=== PATIENT | male | born 1955 | race Caucasian/White ===

== ENCOUNTER 2016-07-12 07:28 | Inpatient (IN) | payer BC ==
[2016-07-12] VITALS (17 sets, daily range): BP systolic 87–138; BP diastolic 45–77
[~2016-07-12] VITALS: Ht 177.8 cm; Wt 98.6 kg
[2016-07-12 07:54] LABS: BASO # 0.1 x10^3/uL (0.0-0.2); BASO % 0 % (0-3); EOS % 1 % (0-3); HEMATOCRIT 48.7 % (39.0-53.0); HEMOGLOBIN 17.1 g/dL (13.0-17.5); LYMPH # 1.6 x10^3/uL (1.0-4.8); LYMPH % 13 % (24-48); MEAN CORPUSCULAR HEMOGLOBIN 33 pg (25-35); MEAN CORPUSCULAR HGB CONC 35 g/dL (31-37); MEAN CORPUSCULAR VOLUME 93 fL (79-100); MONO % 8 % (0-9); NEUT % 78 % (31-73); PLATELET COUNT 238 x10^3/uL (140-400); RED BLOOD COUNT 5.24 x10^6/uL (4.30-5.70); RED CELL DISTRIBUTION WIDTH 13.4 % (11.5-14.5); WHITE BLOOD COUNT 11.7 x10^3/uL (4.0-11.0)
--- NOTE | 2016-07-12 07:58 | PHYS DOC ---
Past Medical History Past Medical History: COPD, Hypertension Past Surgical History: Other Additional Past Surgical Histo: umiblical hernia, AAA Adult General Chief Complaint Chief Complaint: CHEST PAIN HPI HPI Patient is a 61 year old male presents to the emergency department by private vehicle. Patient states he was fine when he went to work. 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 He states he began to have numbness and tingling in the left arm and hand. He states, "I was able to think of what I wanted to say although I could not speak it." Patient states he was able to call for others to come get his truck. Patient was activated as a code stroke. Patient states he had hernia surgery 1 year ago, he currently take ASA daily. Review of Systems Review of Systems Constitutional: Denies fever or chills [] Eyes: Denies change in visual acuity, redness, or eye pain [] HENT: Denies nasal congestion or sore throat [] Respiratory: Denies cough or shortness of breath [] Cardiovascular: No additional information not addressed in HPI [] GI: Denies abdominal pain, nausea, vomiting, bloody stools or diarrhea [] : Denies dysuria or hematuria [] Musculoskeletal: Denies back pain or joint pain [] Integument: Denies rash or skin lesions [] Neurologic: Denies headache, focal weakness or sensory changes [] Endocrine: Denies polyuria or polydipsia [] Current Medications Current Medications Current Medications Medications (Trade) Dose Ordered Sig/Remy Start Time Stop Time Status Last Admin Dose Admin Alteplase, Recombinant 0 ml @ 81 mls/hr Q1H 07/12/16 08:45 07/12/16 08:46 DC 07/12/16 09:09 81 MLS/HR Sodium Chloride 50 ml @ 0 mls/hr 1X ONCE 07/12/16 08:30 07/12/16 08:39 DC 07/12/16 10:03 0 MLS/HR Allergies Allergies Allergies Coded Allergies Type Severity Reaction Last Updated Verified levofloxacin Allergy Intermediate "stroke like symptoms" 07/12/16 Yes Uncoded Allergies Type Severity Reaction Last Updated Verified thermosol Adverse Reaction Intermediate 07/12/16 Physical Exam Physical Exam Constitutional: Well developed, well nourished, no acute distress, non-toxic appearance. [] HENT: Normocephalic, atraumatic, bilateral external ears normal, oropharynx moist, no oral exudates, nose normal. [] Eyes: PERRLA, EOMI, conjunctiva normal, no discharge. [] Neck: Normal range of motion, no tenderness, supple, no stridor. [] Cardiovascular:Heart rate regular rhythm, no murmur [] Lungs & Thorax: Bilateral breath sounds clear to auscultation [] Abdomen: Bowel sounds normal, soft, no tenderness, no masses, no pulsatile masses. [] Skin: Warm, dry, no erythema, no rash. [] Back: No tenderness Extremities: No tenderness, no cyanosis, no clubbing, ROM intact, no edema. [] Neurologic: Alert and oriented X 3, normal motor function, normal sensory function, no focal deficits noted. cranial nerve II-XII intact with patient having decrease sensation to left lower extremity. Psychologic: Affect normal, judgement normal, mood normal. [] Current Patient Data Vital Signs Vital Signs Date Time Temp Pulse Resp B/P (MAP) Pulse Ox O2 Delivery O2 Flow Rate FiO2 07/12/16 08:32 76 18 134/76 (95) 92 Room Air 07/12/16 07:54 97.7 97.7 Lab Values Laboratory Tests Test 07/12/16 07:43 07/12/16 07:47 07/12/16 08:40 Glucose (Fingerstick) 116 mg/dL (70-99) H White Blood Count 11.7 x10^3/uL (4.0-11.0) H Red Blood Count 5.24 x10^6/uL (4.30-5.70) Hemoglobin 17.1 g/dL (13.0-17.5) Hematocrit 48.7 % (39.0-53.0) Mean Corpuscular Volume 93 fL (79-100) Mean Corpuscular Hemoglobin 33 pg (25-35) Mean Corpuscular Hemoglobin Concent 35 g/dL (31-37) Red Cell Distribution Width 13.4 % (11.5-14.5) Platelet Count 238 x10^3/uL (140-400) Neutrophils (%) (Auto) 78 % (31-73) H Lymphocytes (%) (Auto) 13 % (24-48) L Monocytes (%) (Auto) 8 % (0-9) Eosinophils (%) (Auto) 1 % (0-3) Basophils (%) (Auto) 0 % (0-3) Neutrophils # (Auto) 9.2 x10^3uL (1.8-7.7) H Lymphocytes # (Auto) 1.6 x10^3/uL (1.0-4.8) Monocytes # (Auto) 0.9 x10^3/uL (0.0-1.1) Eosinophils # (Auto) 0.1 x10^3/uL (0.0-0.7) Basophils # (Auto) 0.1 x10^3/uL (0.0-0.2) Prothrombin Time 12.7 SEC (11.7-14.0) Prothrombin Time INR 1.0 (0.8-1.1) PTT 32 SEC (24-38) Sodium Level 139 mmol/L (136-145) Potassium Level 3.7 mmol/L (3.5-5.1) Chloride Level 101 mmol/L (98-107) Carbon Dioxide Level 27 mmol/L (21-32) Anion Gap 11 (6-14) Blood Urea Nitrogen 14 mg/dL (8-26) Creatinine 1.1 mg/dL (0.7-1.3) Estimated GFR (Cockcroft-Gault) 68.3 BUN/Creatinine Ratio 13 (6-20) Glucose Level 109 mg/dL (70-99) H Calcium Level 9.5 mg/dL (8.5-10.1) Total Bilirubin 0.8 mg/dL (0.2-1.0) Aspartate Amino Transferase (AST) 24 U/L (15-37) Alanine Aminotransferase (ALT) 16 U/L (16-63) Alkaline Phosphatase 81 U/L (46-116) Troponin I Quantitative < 0.017 ng/mL (0.000-0.055) Total Protein 7.9 g/dL (6.4-8.2) Albumin 3.8 g/dL (3.4-5.0) Albumin/Globulin Ratio 0.9 (1.0-1.7) L Triglycerides Level 51 mg/dL (0-150) Cholesterol Level 152 mg/dL (0-200) LDL Cholesterol, Calculated 97 mg/dL (0-100) VLDL Cholesterol, Calculated 10 mg/dL (0-40) Non-HDL Cholesterol Calculated 107 mg/dL (0-129) HDL Cholesterol 45 mg/dL (40-60) Cholesterol/HDL Ratio 3.4 Thyroid Stimulating Hormone (TSH) 0.644 uIU/mL (0.358-3.74) Urine Collection Type Unknown Urine Color Yellow Urine Clarity Clear Urine pH 7.0 Urine Specific [place] 1.015 Urine Protein Negative mg/dL (NEG-TRACE) Urine Glucose (UA) Negative mg/dL (NEG) Urine Ketones (Stick) Negative mg/dL (NEG) Urine Blood Negative (NEG) Urine Nitrite Negative (NEG) Urine Bilirubin Negative (NEG) Urine Urobilinogen Dipstick 1.0 mg/dL (0.2 mg/dL) Urine Leukocyte Esterase Negative (NEG) Urine RBC 0 /HPF (0-2) Urine WBC Occ /HPF (0-4) Urine Squamous Epithelial Cells Few /LPF Urine Bacteria 0 /HPF (0-FEW) Laboratory Tests 07/12/16 07:47 Laboratory Tests 07/12/16 07:47 EKG EKG Patient with an EKG completed those 740 heart rate 72 sinus rhythm noted no STEMI per Dr. Bucio. [] Radiology/Procedures Radiology/Procedures [facility] [address] [place], [place] [id number] IMAGING REPORT Signed PATIENT: TAN TORRES ACCOUNT: [id number] : 1955 LOCATION: ER AGE: 61 SEX: M EXAM STATUS: PRE ER ORD. PHYSICIAN: VENTURA SHUKLA APRN REASON: neuro changes less than 1 hour ago PROCEDURE: CT HEAD WO CONTRAST CT of the head without contrast, 07/12/2016: History: Left arm weakness, hypertension The ventricles are within normal limits in size. There is no shift of the midline structures. There is no evidence of acute intracranial hemorrhage or mass effect. Moderate mucosal thickening is noted in the maxillary and ethmoid sinuses. There is mucosal thickening with an air-fluid level in the left frontal sinus. IMPRESSION: 1. No acute intracranial abnormality is detected. 2. Paranasal sinusitis PQRS Compliance Statement: One or more of the following individualized dose reduction techniques were utilized for this examination: 1. Automated exposure control 2. Adjustment of the mA and/or kV according to patient size 3. Use of iterative reconstruction technique DICTATED and SIGNED BY: EVA TREVINO MD DATE: 07/12/16753 CC: VENTURA SHUKLA APRN ~ [] [facility] [address] [place] [address] IMAGING REPORT Signed PATIENT: TAN TORRES ACCOUNT: [id number] : 1955 LOCATION: ER AGE: 61 SEX: M EXAM STATUS: REG ER ORD. PHYSICIAN: VENTURA SHUKLA APRN REASON: SOA, all over weakness & tingling since 0600 this morning PROCEDURE: PORTABLE CHEST 1V Indication shortness of air. Weakness. A single view of the chest was obtained. No prior imaging of the chest is available. The heart and pulmonary vessels are within normal limits. There is volume loss at the lung bases most compatible with atelectasis. Underlying pneumonia is not entirely excluded. Significant pleural fluid is not seen. There is no pneumothorax. IMPRESSION: Volume loss at the lung bases likely reflects atelectasis. A definite acute process in the chest is not seen. DICTATED and SIGNED BY: DANIELITO KITCHEN MD DATE: 07/12/16920 CC: VENTURA SHUKLA APRN; NON,STAFF ~ Course & Med Decision Making Course & Med Decision Making Pertinent Labs and Imaging studies reviewed. (See chart for details) Assessment completed with patient noted to have drift of left upper arm and left leg. Patient with decrease strength per upper extremities, Patient noted to be slower with upper left arm movements when performing finger to nose to finger exam. Patient with decrease sensation noted to the left extremities. 0754 CT scan negative for acute findings at this times. Call placed to Dr Person with NIH scale 4, PT/PTT/INR normal, creatine normal. Spoke with Dr Moody in regards to admission for this patient. Patient will be placed in ICU Spoke with patient and in regards to TPA. Patient is considered to be a TPA candidate. Provided patient and with risk and benefit of using TPA with patient stating, "Let my make all the decisions, I cannot think straight." Patients agrees with TPA treatment. Patient will be admitted into ICU patient is guarded at this time. Co-worker stated she received a phone call from him that he was not feeling right. She states he was very calm when he was talking to her. She states at 0717 when she had talked to him again he had slurred speech. Dr Bucio aware of the patients condition and aware of treatment plan. Dr Bucio to assess patient. [address] Person in regards to patient having slurred speech, left facial drooping, with improvement of left leg. Dr Person feels that the stroke protocol has been followed and there may be further progression of strokes in next 24 hours. Asked about repeat CT of head with Dr Person recommending following stroke protocol. [] Dragon Disclaimer Dragon Disclaimer This electronic medical record was generated, in whole or in part, using a voice recognition dictation system. Departure Departure Impression: Primary Impression: CVA (cerebral vascular accident) Disposition: ADMITTED INPATIENT Admitting Physician: Other (Spoke with Dr Moody and Dr Person) Condition: GUARDED VENTURA SHUKLA LIFE CLAIMS EXAMINER July 12, 2016 07:58
[2016-07-12 07:59] LABS: CALCIUM 9.5 mg/dL (8.5-10.1); CREATININE 1.1 mg/dL (0.7-1.3); GFR 68.3; POTASSIUM 3.7 mmol/L (3.5-5.1)
[2016-07-12 08:08] LABS: ALBUMIN 3.8 g/dL (3.4-5.0); ALBUMIN/GLOBULIN RATIO 0.9 (1.0-1.7); TOTAL BILIRUBIN 0.8 mg/dL (0.2-1.0); TOTAL PROTEIN 7.9 g/dL (6.4-8.2)
[2016-07-12 08:16] LABS: PROTHROMBIN TIME PATIENT 12.7 SEC (11.7-14.0)
[2016-07-12] MEDS ORDERED: IV NORMAL SALINE 50ML 50 ML IV ONE (08:30)
[2016-07-12] MEDS ORDERED: BECL8.7A6 IH (08:43)
[2016-07-12] MEDS ORDERED: LANS30CA PO (08:43)
[2016-07-12] MEDS ORDERED: TIOT18CA IH (08:43)
[2016-07-12] MEDS ORDERED: BRIM5DRO3 RIGHTEYE (08:43)
[2016-07-12] MEDS ORDERED: LISI1TAB5 PO (08:43)
[2016-07-12] MEDS ORDERED: DORZ10DR3 RIGHTEYE (08:43)
[2016-07-12] MEDS ORDERED: PROAIR HFA8.5 GM INH (08:43)
[2016-07-12] MEDS ORDERED: ATOR20TA58 PO (08:43)
[2016-07-12] MEDS ORDERED: ALTEPLASE 81 MG IV SCH (08:45)
[2016-07-12] MEDS ORDERED: ALTEPLASE 9 MG IV ONE (08:45)
--- NOTE | 2016-07-12 08:45 | EKG ---
[facility] [address] [place] [address] Test Date: 2016-07-12 Test Time: 07:40:49 Pat Name: TAN [facility] Department: Room: Gender: M Scheduling Analyst: : 1955 Requested By: VENTURA SHUKLA Order Number: [id number] Reading MD: Kathy Montes Measurements Intervals [place] Rate: 72 P: 1 NV: 160 QRS: -37 QRSD: 120 T: 14 QT: 396 QTc: 435 Interpretive Statements SINUS RHYTHM ABNORMAL LEFT AXIS DEVIATION LEFT ANTERIOR FASCICULAR BLOCK INCOMPLETE RIGHT BUNDLE BRANCH BLOCK RI6.01 Unconfirmed report No previous ECG available for comparison Electronically Signed On 07-15-2016 20:36:20 CDT by Kathy Montes
[2016-07-12 08:50] LABS: BILIRUBIN,URINE NEGATIVE (NEG); GLUCOSE,URINE NEGATIVE (NEG); NITRITE,URINE NEGATIVE (NEG); PROTEIN,URINE NEGATIVE (NEG-TRACE)
[2016-07-12 09:01] LABS: RBC,URINE 0 /HPF (0-2)
[2016-07-12 09:02] LABS: BACTERIA,URINE 0 /HPF (0-FEW); SQUAMOUS EPITHELIAL CELL,UR FEW /LPF; WBC,URINE OCC /HPF (0-4)
[2016-07-12] MEDS ORDERED: ONDANSETRON ODT 4 MG TAB.RAPDIS. PO ONE (09:15)
--- NOTE | 2016-07-12 09:25 | RAD ---
Indication shortness of air. Weakness. A single view of the chest was obtained. No prior imaging of the chest is available. The heart and pulmonary vessels are within normal limits. There is volume loss at the lung bases most compatible with atelectasis. Underlying pneumonia is not entirely excluded. Significant pleural fluid is not seen. There is no pneumothorax. IMPRESSION: Volume loss at the lung bases likely reflects atelectasis. A definite acute process in the chest is not seen.
--- NOTE | 2016-07-12 10:10 | ACF ---
Admit Criteria Forms Admit Criteria Forms Admit Criteria Forms STROKE: ISCHEMIC Clinical Indications for Admission to Inpatient Care (Place 'X' for any and all applicable criteria): Admission is indicated for ANY ONE of the following(1)(2)(3)(4): [X]I. Acute stroke Extended stay beyond goal length of stay may be needed for(1)(2) [ ]a) Major deficit or clinical deterioration [ ]b) Hospital-acquired infection (eg, urinary tract infection, pneumonia) [ ]c) Embolic cause of stroke [ ]d) Venous thromboembolism(9) [ ]e) Seizures [ ]f) Bleeding (eg, cerebral) [ ]g) Increased intracranial pressure [ ]h) Comorbidities [ ]i) Surgical intervention The original [employer] content created by [employer] has been revised. The portions of the content which have been revised are identified through the use of italic text or in bold, and [facility] has neither reviewed nor approved the modified material. All other unmodified content is copyright [facility]. Please see references footnoted in the original [employer] edition 2016 ANALISA MCMANUS July 12, 2016 10:10
[2016-07-12] MEDS ORDERED: HYDROcodone/APAP 5/325MG 1 TAB TABLET PO PRN (10:30)
[2016-07-12] MEDS ORDERED: ACETAMINOPHEN 325 MG TABLET. PO PRN (10:30)
[2016-07-12] MEDS ORDERED: hydrALAZINE 20 MG/ML VIAL. IVP PRN (10:30)
[2016-07-12] MEDS ORDERED: ALBUTEROL SULFATE 2.5 MG/3 ML NEBU. NEB PRN (10:30)
[2016-07-12] MEDS ORDERED: ONDANSETRON PF 4 MG/2 ML VIAL. IV PRN (10:30)
--- NOTE | 2016-07-12 10:33 | PDOC1 ---
History and Physical Past Medical History Cardiovascular: HTN Pulmonary: COPD Past Surgical History Past Surgical History AAA repair, glaucoma surgery Family History Family History: Hypertension Social History Smoke: <1 pack per day ALCOHOL: none Drugs: None Current Problem List Problem List Problems Medical Problems: (1) CVA (cerebral vascular accident) Status: Acute Current Medications Current Medications Current Medications Medications (Trade) Dose Ordered Sig/Remy Start Time Stop Time Status Last Admin Dose Admin Alteplase, Recombinant 0 ml @ 81 mls/hr Q1H 07/12/16 08:45 07/12/16 08:46 DC 07/12/16 09:09 81 MLS/HR Ondansetron HCl (Zofran Odt) 4 mg 1X ONCE 07/12/16 09:15 07/12/16 09:16 DC 07/12/16 09:12 4 MG Sodium Chloride 50 ml @ 0 mls/hr 1X ONCE 07/12/16 08:30 07/12/16 08:39 DC 07/12/16 10:03 0 MLS/HR Allergies Allergies Allergies Coded Allergies Type Severity Reaction Last Updated Verified levofloxacin Allergy Intermediate "stroke like symptoms" 07/12/16 Yes Uncoded Allergies Type Severity Reaction Last Updated Verified thermosol Adverse Reaction Intermediate 07/12/16 ROS Review of System CONSTITUTIONAL: No fever or chills EYES: No recent changes SKIN: No rash or itching CARDIOVASCULAR: No chest pain, syncope, palpitations, or edema RESPIRATORY: No SOB or cough GASTROINTESTINAL: No nausea, vomiting or abdominal pain NEUROLOGICAL: slurring of speech, left upper extremity decreased sensations. ENDOCRINE: No cold or heat intolerance GENITOURINARY: No urgency or frequency of urination MUSCULOSKELETAL: No back pain or joint pain LYMPHATICS: No enlarged lymph nodes PSYCHIATRIC: No anxiety or depression Physical Exam Physical Exam GEN.: No apparent distress. Alert and oriented times3 HEENT: Head is normocephalic, atraumatic NECK: Supple. no JVD LUNGS: Clear to auscultation. HEART: RRR, S1, S2 present. Peripheral pulses intact ABDOMEN: Soft, nontender. Positive bowel sounds. EXTREMITIES: Without any cyanosis. NEUROLOGIC: mild slurring of speech, decreased sensation on left upper and LE extremities. PSYCHIATRIC: Normal affect, normal mood. SKIN: No ulcerations Vitals Vitals Vital Signs Date Time Temp Pulse Resp B/P (MAP) Pulse Ox O2 Delivery O2 Flow Rate FiO2 07/12/16 10:02 86 23 121/64 (83) 94 Nasal Cannula 2.0 07/12/16 07:54 97.7 97.7 Labs Labs Laboratory Tests Test 07/12/16 07:43 07/12/16 07:47 07/12/16 08:40 Glucose (Fingerstick) 116 mg/dL (70-99) White Blood Count 11.7 x10^3/uL (4.0-11.0) Red Blood Count 5.24 x10^6/uL (4.30-5.70) Hemoglobin 17.1 g/dL (13.0-17.5) Hematocrit 48.7 % (39.0-53.0) Mean Corpuscular Volume 93 fL (79-100) Mean Corpuscular Hemoglobin 33 pg (25-35) Mean Corpuscular Hemoglobin Concent 35 g/dL (31-37) Red Cell Distribution Width 13.4 % (11.5-14.5) Platelet Count 238 x10^3/uL (140-400) Neutrophils (%) (Auto) 78 % (31-73) Lymphocytes (%) (Auto) 13 % (24-48) Monocytes (%) (Auto) 8 % (0-9) Eosinophils (%) (Auto) 1 % (0-3) Basophils (%) (Auto) 0 % (0-3) Neutrophils # (Auto) 9.2 x10^3uL (1.8-7.7) Lymphocytes # (Auto) 1.6 x10^3/uL (1.0-4.8) Monocytes # (Auto) 0.9 x10^3/uL (0.0-1.1) Eosinophils # (Auto) 0.1 x10^3/uL (0.0-0.7) Basophils # (Auto) 0.1 x10^3/uL (0.0-0.2) Prothrombin Time 12.7 SEC (11.7-14.0) Prothromb Time International Ratio 1.0 (0.8-1.1) Activated Partial Thromboplast Time 32 SEC (24-38) Sodium Level 139 mmol/L (136-145) Potassium Level 3.7 mmol/L (3.5-5.1) Chloride Level 101 mmol/L (98-107) Carbon Dioxide Level 27 mmol/L (21-32) Anion Gap 11 (6-14) Blood Urea Nitrogen 14 mg/dL (8-26) Creatinine 1.1 mg/dL (0.7-1.3) Estimated GFR (Cockcroft-Gault) 68.3 BUN/Creatinine Ratio 13 (6-20) Glucose Level 109 mg/dL (70-99) Calcium Level 9.5 mg/dL (8.5-10.1) Total Bilirubin 0.8 mg/dL (0.2-1.0) Aspartate Amino Transf (AST/SGOT) 24 U/L (15-37) Alanine Aminotransferase (ALT/SGPT) 16 U/L (16-63) Alkaline Phosphatase 81 U/L (46-116) Troponin I Quantitative < 0.017 ng/mL (0.000-0.055) Total Protein 7.9 g/dL (6.4-8.2) Albumin 3.8 g/dL (3.4-5.0) Albumin/Globulin Ratio 0.9 (1.0-1.7) Urine Collection Type Unknown Urine Color Yellow Urine Clarity Clear Urine pH 7.0 Urine Specific [place] 1.015 Urine Protein Negative mg/dL (NEG-TRACE) Urine Glucose (UA) Negative mg/dL (NEG) Urine Ketones (Stick) Negative mg/dL (NEG) Urine Blood Negative (NEG) Urine Nitrite Negative (NEG) Urine Bilirubin Negative (NEG) Urine Urobilinogen Dipstick 1.0 mg/dL (0.2 mg/dL) Urine Leukocyte Esterase Negative (NEG) Urine RBC 0 /HPF (0-2) Urine WBC Occ /HPF (0-4) Urine Squamous Epithelial Cells Few /LPF Urine Bacteria 0 /HPF (0-FEW) Laboratory Tests Test 07/12/16 07:43 07/12/16 07:47 07/12/16 08:40 Glucose (Fingerstick) 116 mg/dL (70-99) White Blood Count 11.7 x10^3/uL (4.0-11.0) Red Blood Count 5.24 x10^6/uL (4.30-5.70) Hemoglobin 17.1 g/dL (13.0-17.5) Hematocrit 48.7 % (39.0-53.0) Mean Corpuscular Volume 93 fL (79-100) Mean Corpuscular Hemoglobin 33 pg (25-35) Mean Corpuscular Hemoglobin Concent 35 g/dL (31-37) Red Cell Distribution Width 13.4 % (11.5-14.5) Platelet Count 238 x10^3/uL (140-400) Neutrophils (%) (Auto) 78 % (31-73) Lymphocytes (%) (Auto) 13 % (24-48) Monocytes (%) (Auto) 8 % (0-9) Eosinophils (%) (Auto) 1 % (0-3) Basophils (%) (Auto) 0 % (0-3) Neutrophils # (Auto) 9.2 x10^3uL (1.8-7.7) Lymphocytes # (Auto) 1.6 x10^3/uL (1.0-4.8) Monocytes # (Auto) 0.9 x10^3/uL (0.0-1.1) Eosinophils # (Auto) 0.1 x10^3/uL (0.0-0.7) Basophils # (Auto) 0.1 x10^3/uL (0.0-0.2) Prothrombin Time 12.7 SEC (11.7-14.0) Prothromb Time International Ratio 1.0 (0.8-1.1) Activated Partial Thromboplast Time 32 SEC (24-38) Sodium Level 139 mmol/L (136-145) Potassium Level 3.7 mmol/L (3.5-5.1) Chloride Level 101 mmol/L (98-107) Carbon Dioxide Level 27 mmol/L (21-32) Anion Gap 11 (6-14) Blood Urea Nitrogen 14 mg/dL (8-26) Creatinine 1.1 mg/dL (0.7-1.3) Estimated GFR (Cockcroft-Gault) 68.3 BUN/Creatinine Ratio 13 (6-20) Glucose Level 109 mg/dL (70-99) Calcium Level 9.5 mg/dL (8.5-10.1) Total Bilirubin 0.8 mg/dL (0.2-1.0) Aspartate Amino Transf (AST/SGOT) 24 U/L (15-37) Alanine Aminotransferase (ALT/SGPT) 16 U/L (16-63) Alkaline Phosphatase 81 U/L (46-116) Troponin I Quantitative < 0.017 ng/mL (0.000-0.055) Total Protein 7.9 g/dL (6.4-8.2) Albumin 3.8 g/dL (3.4-5.0) Albumin/Globulin Ratio 0.9 (1.0-1.7) Urine Collection Type Unknown Urine Color Yellow Urine Clarity Clear Urine pH 7.0 Urine Specific [place] 1.015 Urine Protein Negative mg/dL (NEG-TRACE) Urine Glucose (UA) Negative mg/dL (NEG) Urine Ketones (Stick) Negative mg/dL (NEG) Urine Blood Negative (NEG) Urine Nitrite Negative (NEG) Urine Bilirubin Negative (NEG) Urine Urobilinogen Dipstick 1.0 mg/dL (0.2 mg/dL) Urine Leukocyte Esterase Negative (NEG) Urine RBC 0 /HPF (0-2) Urine WBC Occ /HPF (0-4) Urine Squamous Epithelial Cells Few /LPF Urine Bacteria 0 /HPF (0-FEW) VTE Prophylaxis Ordered VTE Prophylaxis Devices: Contraindicated VTE Pharmacological Prophylaxi: Contraindicated KRISTAL VARELA MD July 12, 2016 10:33
[2016-07-12] MEDS ORDERED: NON FORMULARY ITEM (Albuterol Sulfate (Proair Hfa Inhaler) 1 PUFF) INH PRN (10:45)
[2016-07-12 10:54] LABS: CHOLESTEROL/HDL RATIO 3.4
--- NOTE | 2016-07-12 11:29 | RAD ---
Carotid ultrasound, 07/12/2016: History: CVA Duplex evaluation of the carotid arteries in the neck was performed including grayscale, color-flow and spectral Doppler analysis. There is mild intimal thickening and smooth plaquing in the common carotid arteries and at the carotid bifurcations. The Doppler data obtained from the bifurcations reveals no significant focal velocity elevation to suggest a hemodynamically significant carotid stenosis. The peak systolic velocity in the right internal carotid artery is 63 cm/s with an end-diastolic velocity of 21 cm/s. The peak systolic velocity in the left internal carotid artery is 74 cm per sec with an end-diastolic velocity of 32 cm/s. Antegrade flow is present in both vertebral arteries in the neck. IMPRESSION: Mild atherosclerotic plaquing at both carotid bifurcations with underlying luminal narrowing in the 0-50% diameter range bilaterally. Note: Stenosis calculations for CT, MRA and conventional angiography are based upon determination of the distal ICA diameter in accordance with the NASCET methodology. Stenosis calculations for Doppler studies are derived from validated velocity criteria which are known to correlate with NASCET methodology of determining stenosis.
[2016-07-12 12:11] LABS: BARBITURATES NEG (NEG); BENZODIAZEPINES NEG (NEG); CANNABINOIDS NEG (NEG); COCAINE NEG (NEG); METHADONE NEG (NEG); OPIATES NEG (NEG); PHENCYCLIDINE NEG (NEG)
[2016-07-12] MEDS: IV NORMAL SALINE 1000ML BAG 1,000 ML IV SCH (12:45)
[2016-07-12] MEDS: IPRATRPIUM/ALBUTEROL 0.5/2.5MG 3 ML NEBU. NEB SCH ×3 (12:53→20:07)
--- NOTE | 2016-07-12 13:35 | PDOC2 ---
NEUROLOGY CONSULT Date of Admission Date of Admission DATE: 07/12/16 TIME: 13:13 Reason for Consult Reason for Consult: IMPRESSION: Left side numbness and weakness, and slurred speech. CVA syndrome, s/p TPA. HTN Chest pain. COPD Moderate carotid A stenosis, <50%. Obesity. Smoking x 40 years. RECOMMENDATIONS/PLAN: TPA protocol. Stroke protocol. NIH score checking. Maintain good hydration. Brain MRI w/o contrast. lab: see orders. Carotid A US + Doppler, performed. Echo + Bubble study. ASA [address] dose on 07/13/16 waiting 24 hours after TPA. Treat medical diseases. OT/PT Discussed in all detail with his at bedside in ICU. Carotid A US + Doppler: Moderate stenosis, but < 50%. HISTORY OF THE PRESENT ILLNESS: 61-y-old male patient with Hx of above medical diseases and chronic smoking 1/2 to 1 pack daily for > 40 years. He got up at 5:00 am this morning but developed symptoms of left side UE and LE weakness and slurred speech about 5:36 am. He was brought to the ER of [facility] by private vehicle. His symptoms persistent and his NIH score was 11. After all criteria were met and consent obtained, TPA was administrated in the ER and he was transferred to ICU. He was reportedly worse after TPA, but re- accessment determined was unrelated to TPA. His CVA symptoms improved to NIH score 3 in ICU. He took ASA but has not taken it in the past 2 weeks. PAST MEDICAL HISTORY: Please see above. PAST SURGERY HISTORY: Cataract surgery. Hernia Repair. ALLERGY: Reviewed. MEDICATIONS: Refer to MAR FAMILY HISTORY: Uncertain if his mother had tumor. SOCIAL HISTORY: Lives with his at home. Denies alcohol and illicit drug use. He smokes 1/2 to 1 pack of cigarettes a day for 40 years. REVIEW OF SYSTEMS: Constitutional: No malnutrition, weight loss, cachexia. Head: No recent traumatic brain or head injury. Skin: No edema, or rash. Ear: No infection. Eyes: No vision loss or color blindness. Nose: No bleeding or purulent discharges. Hearing: No hearing decrease. Neck: No recent injury. Cardiac: HTN, chest pain. Pulmonary: Smoking. GI: No GI ulcer, GI bleeding, GERD. Urinary/genital: No dysuria, incontinence, urinary retention. Endocrinologic: Obesity. Skeletomuscular: No muscular atrophy, deformity. Neurological: see HP. Psychiatric: Denies drug use/abuse. Otherwise, not [id number] review of systems. PHYSICAL EXAMINATION: General appearance is in acute distress. HEENT: Normocephalic and nontraumatic. Eyes, nose, ears, and throat are unremarkable. Neck is supple. No lymphadenopathy. No crepitus. Cardiovascular: S1, S2, regular rate and rhythm. Pulmonary: Clear to auscultation bilaterally. Abdomen: Bowel sounds are positive. Abdomen is soft, nontender, and nondistended. Extremities: No rash, lesions, or edema. No restriction of range of motion. NEUROLOGICAL EXAMINATION: Awake. Oriented to place and person but not accurate to time. PERRL. EOMI. CN: no obvious focal findings. Muscle tone: within normal. Muscle strength: 4 left UE, 4+ left LE, 5 right side. DTR: 2 Plantar reflex: Flexor response bilaterally Gait: not examined in bed. Sensory exam: no abnormal findings. No cerebellar signs elicited. F-T-N test fine. Current Medications Current Medications Current Medications Alteplase, Recombinant 0 ml @ 0 mls/hr 1X ONCE IV Last administered on 09:04; Start 07/12/16 at 08:45; Stop 07/12/16 at 08:46; Status DC Alteplase, Recombinant 0 ml @ 81 mls/hr Q1H IV Last administered on 07/12/16 09:09; Start 07/12/16 at 08:45; Stop 07/12/16 at 08:46; Status DC Sodium Chloride 50 ml @ 0 mls/hr 1X ONCE IV Last administered on 07/12/16 10: 03; Start 07/12/16 at 08:30; Stop 07/12/16 at 08:39; Status DC Ondansetron HCl (Zofran Odt) 4 mg 1X ONCE PO Last administered on 07/12/16 09 :12; Start 07/12/16 at 09:15; Stop 07/12/16 at 09:16; Status DC Acetaminophen (Tylenol) 325 mg PRN Q6HRS PRN PO MILD PAIN / TEMP; Start at 10:30 Acetaminophen/ Hydrocodone Bitart (Lortab 5/325) 1 tab PRN Q6HRS PRN PO MODERATE TO SEVERE PAIN; Start 07/12/16 at 10:30 Hydralazine HCl (Apresoline) 10 mg PRN Q4HRS PRN IVP ELEVATED BP, SEE COMMENTS ; Start 07/12/16 at 10:30 Ondansetron HCl (Zofran) 4 mg PRN Q8HRS PRN IV NAUSEA/VOMITING; Start 07/12/16 at 10:30 Albuterol Sulfate (Ventolin Neb Soln) 2.5 mg PRN Q4HRS PRN NEB SHORTNESS OF BREATH; Start 07/12/16 at 10:30 Atorvastatin Calcium (Lipitor) 20 mg QHS PO ; Start 07/12/16 at 21:00 Dorzolamide HCl (Trusopt) 1 drop BID OU ; Start 07/12/16 at 21:00 Non-Formulary Medication 1 puff PRN Q6HRS PRN INH SHORTNESS OF BREATH; Start at 10:45; Status UNV Budesonide (Pulmicort) 0.5 mg PRN BID PRN NEB SHORTNESS OF BREATH; Start at 20:00 Brimonidine Tartrate (Alphagan) 1 drop BID OD ; Start 07/12/16 at 21:00 Lansoprazole (Prevacid) 30 mg DAILYAC PO ; Start 07/13/16 at 07:30 Lisinopril (Prinivil) 20 mg DAILY PO ; Start 07/13/16 at 09:00 Albuterol/ Ipratropium (Duoneb) 3 ml RTQID NEB Last administered on 07/12/16t 12:53; Start 07/12/16 at 12:00 Hydrochlorothiazide (Microzide) 12.5 mg DAILY PO ; Start 07/13/16 at 09:00 Sodium Chloride 1,000 ml @ 70 mls/hr [id number] IV ; Start 07/12/16 at 12:45 Active Scripts Active Reported Dorzolamide Hcl 10 Ml Drops 1 Drop RIGHTEYE BID Alphagan P (Brimonidine Tartrate) 5 Ml Drops 1 Drop RIGHTEYE BID Qvar 80MCG Inhaler (Beclomethasone Dipropionate) 8.7 Gm Aer.w.adap 1 Puff IH BID PRN Proair Hfa Inhaler (Albuterol Sulfate) 8.5 Gm Hfa.aer.ad 1 Puff INH PRN Q6HRS PRN Lansoprazole 30 Mg Capsule.dr 1 Cap PO DAILY Atorvastatin Calcium 20 Mg Tablet 1 Tab PO DAILY Lisinopril-Hctz 20-12.5 Mg Tab (Lisinopril/Hydrochlorothiazide) 1 Each Tablet 1 Tab PO DAILY Spiriva (Tiotropium [place]) 18 Mcg Cap.w.dev 1 Cap IH DAILY Allergies Allergies: Coded Allergies: levofloxacin (Verified Allergy, Intermediate, "stroke like symptoms", 07/12) Uncoded Allergies: thermosol (Adverse Reaction, Intermediate, 07/12/16) Vitals VITALS Vital Signs Date Time Temp Pulse Resp B/P (MAP) Pulse Ox O2 Delivery O2 Flow Rate FiO2 07/12/16 12:53 96 Nasal Cannula 2.0 07/12/16 12:00 97.4 71 18 109/58 (75) 97.4 Labs Labs Laboratory Tests Test 07/12/16 07:43 07/12/16 07:47 07/12/16 08:40 07/12/16 11:50 Glucose (Fingerstick) 116 mg/dL (70-99) White Blood Count 11.7 x10^3/uL (4.0-11.0) Red Blood Count 5.24 x10^6/uL (4.30-5.70) Hemoglobin 17.1 g/dL (13.0-17.5) Hematocrit 48.7 % (39.0-53.0) Mean Corpuscular Volume 93 fL (79-100) Mean Corpuscular Hemoglobin 33 pg (25-35) Mean Corpuscular Hemoglobin Concent 35 g/dL (31-37) Red Cell Distribution Width 13.4 % (11.5-14.5) Platelet Count 238 x10^3/uL (140-400) Neutrophils (%) (Auto) 78 % (31-73) Lymphocytes (%) (Auto) 13 % (24-48) Monocytes (%) (Auto) 8 % (0-9) Eosinophils (%) (Auto) 1 % (0-3) Basophils (%) (Auto) 0 % (0-3) Neutrophils # (Auto) 9.2 x10^3uL (1.8-7.7) Lymphocytes # (Auto) 1.6 x10^3/uL (1.0-4.8) Monocytes # (Auto) 0.9 x10^3/uL (0.0-1.1) Eosinophils # (Auto) 0.1 x10^3/uL (0.0-0.7) Basophils # (Auto) 0.1 x10^3/uL (0.0-0.2) Prothrombin Time 12.7 SEC (11.7-14.0) Prothromb Time International Ratio 1.0 (0.8-1.1) Activated Partial Thromboplast Time 32 SEC (24-38) Sodium Level 139 mmol/L (136-145) Potassium Level 3.7 mmol/L (3.5-5.1) Chloride Level 101 mmol/L (98-107) Carbon Dioxide Level 27 mmol/L (21-32) Anion Gap 11 (6-14) Blood Urea Nitrogen 14 mg/dL (8-26) Creatinine 1.1 mg/dL (0.7-1.3) Estimated GFR (Cockcroft-Gault) 68.3 BUN/Creatinine Ratio 13 (6-20) Glucose Level 109 mg/dL (70-99) Calcium Level 9.5 mg/dL (8.5-10.1) Total Bilirubin 0.8 mg/dL (0.2-1.0) Aspartate Amino Transf (AST/SGOT) 24 U/L (15-37) Alanine Aminotransferase (ALT/SGPT) 16 U/L (16-63) Alkaline Phosphatase 81 U/L (46-116) Troponin I Quantitative < 0.017 ng/mL (0.000-0.055) Total Protein 7.9 g/dL (6.4-8.2) Albumin 3.8 g/dL (3.4-5.0) Albumin/Globulin Ratio 0.9 (1.0-1.7) Triglycerides Level 51 mg/dL (0-150) Cholesterol Level 152 mg/dL (0-200) LDL Cholesterol, Calculated 97 mg/dL (0-100) VLDL Cholesterol, Calculated 10 mg/dL (0-40) Non-HDL Cholesterol Calculated 107 mg/dL (0-129) HDL Cholesterol 45 mg/dL (40-60) Cholesterol/HDL Ratio 3.4 Thyroid Stimulating Hormone (TSH) 0.644 uIU/mL (0.358-3.74) Urine Collection Type Unknown Urine Color Yellow Urine Clarity Clear Urine pH 7.0 Urine Specific [place] 1.015 Urine Protein Negative mg/dL (NEG-TRACE) Urine Glucose (UA) Negative mg/dL (NEG) Urine Ketones (Stick) Negative mg/dL (NEG) Urine Blood Negative (NEG) Urine Nitrite Negative (NEG) Urine Bilirubin Negative (NEG) Urine Urobilinogen Dipstick 1.0 mg/dL (0.2 mg/dL) Urine Leukocyte Esterase Negative (NEG) Urine RBC 0 /HPF (0-2) Urine WBC Occ /HPF (0-4) Urine Squamous Epithelial Cells Few /LPF Urine Bacteria 0 /HPF (0-FEW) Urine Opiates Screen Neg (NEG) Urine Methadone Screen Neg (NEG) Urine Barbiturates Neg (NEG) Urine Phencyclidine Screen Neg (NEG) Urine Amphetamine/Methamphetamine Neg (NEG) Urine Benzodiazepines Screen Neg (NEG) Urine Cocaine Screen Neg (NEG) Urine Cannabinoids Screen Neg (NEG) Urine Ethyl Alcohol Neg (NEG) Laboratory Tests Test 07/12/16 07:43 07/12/16 07:47 07/12/16 08:40 07/12/16 11:50 Glucose (Fingerstick) 116 mg/dL (70-99) White Blood Count 11.7 x10^3/uL (4.0-11.0) Red Blood Count 5.24 x10^6/uL (4.30-5.70) Hemoglobin 17.1 g/dL (13.0-17.5) Hematocrit 48.7 % (39.0-53.0) Mean Corpuscular Volume 93 fL (79-100) Mean Corpuscular Hemoglobin 33 pg (25-35) Mean Corpuscular Hemoglobin Concent 35 g/dL (31-37) Red Cell Distribution Width 13.4 % (11.5-14.5) Platelet Count 238 x10^3/uL (140-400) Neutrophils (%) (Auto) 78 % (31-73) Lymphocytes (%) (Auto) 13 % (24-48) Monocytes (%) (Auto) 8 % (0-9) Eosinophils (%) (Auto) 1 % (0-3) Basophils (%) (Auto) 0 % (0-3) Neutrophils # (Auto) 9.2 x10^3uL (1.8-7.7) Lymphocytes # (Auto) 1.6 x10^3/uL (1.0-4.8) Monocytes # (Auto) 0.9 x10^3/uL (0.0-1.1) Eosinophils # (Auto) 0.1 x10^3/uL (0.0-0.7) Basophils # (Auto) 0.1 x10^3/uL (0.0-0.2) Prothrombin Time 12.7 SEC (11.7-14.0) Prothromb Time International Ratio 1.0 (0.8-1.1) Activated Partial Thromboplast Time 32 SEC (24-38) Sodium Level 139 mmol/L (136-145) Potassium Level 3.7 mmol/L (3.5-5.1) Chloride Level 101 mmol/L (98-107) Carbon Dioxide Level 27 mmol/L (21-32) Anion Gap 11 (6-14) Blood Urea Nitrogen 14 mg/dL (8-26) Creatinine 1.1 mg/dL (0.7-1.3) Estimated GFR (Cockcroft-Gault) 68.3 BUN/Creatinine Ratio 13 (6-20) Glucose Level 109 mg/dL (70-99) Calcium Level 9.5 mg/dL (8.5-10.1) Total Bilirubin 0.8 mg/dL (0.2-1.0) Aspartate Amino Transf (AST/SGOT) 24 U/L (15-37) Alanine Aminotransferase (ALT/SGPT) 16 U/L (16-63) Alkaline Phosphatase 81 U/L (46-116) Troponin I Quantitative < 0.017 ng/mL (0.000-0.055) Total Protein 7.9 g/dL (6.4-8.2) Albumin 3.8 g/dL (3.4-5.0) Albumin/Globulin Ratio 0.9 (1.0-1.7) Triglycerides Level 51 mg/dL (0-150) Cholesterol Level 152 mg/dL (0-200) LDL Cholesterol, Calculated 97 mg/dL (0-100) VLDL Cholesterol, Calculated 10 mg/dL (0-40) Non-HDL Cholesterol Calculated 107 mg/dL (0-129) HDL Cholesterol 45 mg/dL (40-60) Cholesterol/HDL Ratio 3.4 Thyroid Stimulating Hormone (TSH) 0.644 uIU/mL (0.358-3.74) Urine Collection Type Unknown Urine Color Yellow Urine Clarity Clear Urine pH 7.0 Urine Specific [place] 1.015 Urine Protein Negative mg/dL (NEG-TRACE) Urine Glucose (UA) Negative mg/dL (NEG) Urine Ketones (Stick) Negative mg/dL (NEG) Urine Blood Negative (NEG) Urine Nitrite Negative (NEG) Urine Bilirubin Negative (NEG) Urine Urobilinogen Dipstick 1.0 mg/dL (0.2 mg/dL) Urine Leukocyte Esterase Negative (NEG) Urine RBC 0 /HPF (0-2) Urine WBC Occ /HPF (0-4) Urine Squamous Epithelial Cells Few /LPF Urine Bacteria 0 /HPF (0-FEW) Urine Opiates Screen Neg (NEG) Urine Methadone Screen Neg (NEG) Urine Barbiturates Neg (NEG) Urine Phencyclidine Screen Neg (NEG) Urine Amphetamine/Methamphetamine Neg (NEG) Urine Benzodiazepines Screen Neg (NEG) Urine Cocaine Screen Neg (NEG) Urine Cannabinoids Screen Neg (NEG) Urine Ethyl Alcohol Neg (NEG) RICH ANDERSEN MD July 12, 2016 13:35
--- NOTE | 2016-07-12 16:03 | RAD ---
MR BRAIN HISTORY: LEFT SIDED WEAKNESS POST TPA, NO SX HX, NO PRIORS.....PT WAS GIVEN ATIVAN FOR CLAUSTAPHOBIC...REPEAT WHAT I COULD TECHNIQUE: Axial diffusion weighted imaging was obtained. Additional sagittal T1, axial T1, axial FLAIR, and axial T2 weighted imaging of the brain was also performed. FINDINGS: There are scattered small foci of restricted diffusion in the posterior right frontal lobe and the right parietal lobe. These are compatible with acute infarcts. There is some very mild associated edema but no hemorrhage or mass effect. Details mildly degraded by motion artifact. There is no midline shift. Ventricles are normal in size. No extra-axial fluid collection. The arterial flow voids level of the skull base are maintained. There is mucosal thickening in the left maxillary sinus and ethmoid air cells and left frontal sinus. Mastoid air cells are clear. IMPRESSION: Small scattered foci of acute infarction in the right MCA distribution. Consider vascular workup of the carotid vessels as a carotid embolic phenomenon is suspected. FOR INTERNAL CODING PURPOSES RESULT CODE: (C) Findings were discussed with the patient's nurse Tana at 07/12/2016 3:57 PM. Electronically signed by: Rex Duran MD (07/12/2016 3:59 PM)
--- NOTE | 2016-07-12 18:58 | HP ---
ADMIT DATE: 07/12/2016 CHIEF COMPLAINT: Cerebrovascular accident symptoms. HISTORY OF PRESENT ILLNESS: A 61-year-old male patient presented to the ER with complaints of the left upper extremity and lower extremity numbness and a decreased sensation, symptoms started early this morning, 5:30-6:00 a.m. and by the time he presented to the ER, his NIH stroke scale was around 11 and he was initiated on TPA as the patient presented to hospital within 3 hours during the period. He had a significant history of smoking more than 40 years and COPD diagnosis. He never had a TIA in the past and denies any coronary artery problems. At the time of my examination in the Critical Care, the patient's symptoms still persisted; however, there is no remarkable weakness in extremities. His speech is still slurred. PAST MEDICAL HISTORY: Hypertension, COPD, glaucoma. PAST SURGICAL HISTORY: Abdominal aortic aneurysm surgery, glaucoma, and hernia repair. ALLERGIES: LEVOFLOXACIN, . MEDICATIONS: Reviewed and reconciled. Please see the MRAD. FAMILY HISTORY: Mother had cancer, unknown type. SOCIAL HISTORY: Smoking positive. No alcohol, no substance abuse. REVIEW OF SYSTEMS AND PHYSICAL EXAMINATION: Please see my electronic H and P. LABORATORY FINDINGS: CBC within normal limits. Chemistry within normal limits. Coagulation panel within normal limits. Toxicology within normal limits. IMAGING STUDIES: Head CT and chest x-ray, no acute process seen. ASSESSMENT: 1. Cerebrovascular accident symptoms with left-sided numbness and slurring of speech, status post tissue plasminogen activator. 2. Chronic obstructive pulmonary disease. 3. History of abdominal aortic aneurysm, status post surgery. 4. Obesity, BMI 30.9. 5. Nicotine use. PLAN: 1. The patient has been placed in the Critical Care Unit and he received TPA as per protocol. We are going to check his neurological status as per the protocol. Neurology has been consulted. I did order his echocardiogram, carotid Doppler, and lipid panel. 2. We will keep him n.p.o. and will order MRI as per Neurology recommendations. 3. IV hydration of 75 mL per hour to prevent any dehydration. 4. Home medication reviewed and reconciled. Please see my MRAD. 5. Physical therapy and occupational therapy. 6. Speech and swallow evaluation. PROGNOSIS: Guarded. JAKE A. GOLON, MD DR: GARY/evelyn JOB#: [id number] / [id number]
--- NOTE | 2016-07-12 19:33 | CARD ---
APPROVED REPORT EXAM: Two-dimensional and M-mode echocardiogram with Doppler and color Doppler. Other Information Quality : GoodHR: 75bpm Rhythm : NSR INDICATION Dyspnea Fatigue Echo Enhancing Agent Agent/Amount Used: Agitated Saline 8mL 2D DIMENSIONS RVDd3.2 (2.9-3.5cm)Left Atrium(2D)4.1 (1.6-4.0cm) IVSd1.4 (0.7-1.1cm)Aortic Root(2D)3.8 (2.0-3.7cm) LVDd4.9 (3.9-5.9cm)LVOT Diameter2.7 (1.8-2.4cm) PWd1.3 (0.7-1.1cm)LVDs3.2 (2.5-4.0cm) FS (%) 34.7 %SV71.5 ml LVEF(%)65.0 (>50%) Aortic Valve AoV Peak Kai.121.5cm/sAoV VTI22.9cm AO Peak GR.5.9mmHgLVOT Peak Kai.111.8cm/s AO Mean GR.4mmHgAVA (VMAX)5.24cm2 Mitral Valve MV E Yaaemktp07.3cm/sMV E Peak Gr.2mmHg MV A Ggzbfnnt24.5cm/sMV E Mean Gr.1mmHg E/A Ratio0.7MV A [id number] LEFT VENTRICLE The left ventricle is normal size. There is moderate concentric left ventricular hypertrophy. The lef t ventricular systolic function is normal and the ejection fraction is within normal range. The Eject ion Fraction is 65%. There is normal LV segmental wall motion. Transmitral Doppler flow pattern is Gr zurdo I-abnormal relaxation pattern. No left ventricle thrombus noted on this study. RIGHT VENTRICLE The right ventricle is normal size. There is normal right ventricular wall thickness. The right ventr icular systolic function is normal. ATRIA The left atrium size is normal. The right atrium size is normal. The interatrial septum is intact wit h no evidence for an atrial septal defect or patent foramen ovale as noted on 2-D or Doppler imaging. Injection of bubbles documented no interatrial shunt. AORTIC VALVE The aortic valve is mildly calcified The aortic valve is trileaflet. Doppler and Color Flow revealed no significant aortic regurgitation. There is no significant aortic valvular stenosis. MITRAL VALVE Mitral annular calcification is mild. The mitral valve leaflets are thickened. TRICUSPID VALVE There is no pulmonary hypertension. Doppler and Color Flow revealed no tricuspid valve regurgitation noted. PULMONIC VALVE The pulmonic valve is not well visualized but appeared to open well. Doppler and Color Flow revealed no pulmonic valvular regurgitation. There is no pulmonic valvular stenosis. GREAT VESSELS The aortic root is normal in size. The ascending aorta is normal in size. The pulmonary artery is nor mal. The IVC is normal in size and collapses >50% with inspiration. PERICARDIAL EFFUSION There is no evidence of significant pericardial effusion. Critical Notification Critical Value: No <Conclusion> The left ventricular systolic function is normal and the ejection fraction is within normal range. The Ejection Fraction is 65%. There is moderate concentric left ventricular hypertrophy. Transmitral Doppler flow pattern is Grade I-abnormal relaxation pattern. The left atrium size is normal. The right atrium size is normal. The aortic valve is mildly calcified The aortic valve is trileaflet. Mitral annular calcification is mild. The mitral valve leaflets are thickened. There is no pulmonary hypertension. Doppler and Color Flow revealed no tricuspid valve regurgitation noted. The pulmonic valve is not well visualized but appeared to open well. There is no evidence of significant pericardial effusion.
[2016-07-12] MEDS: BUDESONIDE 0.5 MG/2 ML NEBU. NEB PRN (20:07)
[2016-07-12] MEDS: BRIMONIDINE 0.2% OPHTH SOLUTION 5ML BOTTLE. OD SCH (21:00)
[2016-07-12] MEDS: DORZOLAMIDE 2% OPHTH SOLUTION 10ML BOTTLE. OU SCH (21:04)
[2016-07-12] MEDS: ATORVASTATIN CALCIUM 20 MG TABLET PO SCH (21:05)
[2016-07-13] VITALS (16 sets, daily range): BP systolic 90–124; BP diastolic 47–76
[2016-07-13 04:14] LABS: BASO # 0.1 x10^3/uL (0.0-0.2); BASO % 1 % (0-3); EOS % 1 % (0-3); LYMPH # 1.5 x10^3/uL (1.0-4.8); LYMPH % 13 % (24-48); MEAN CORPUSCULAR HEMOGLOBIN 32 pg (25-35); MEAN CORPUSCULAR HGB CONC 34 g/dL (31-37); MEAN CORPUSCULAR VOLUME 94 fL (79-100); MONO % 8 % (0-9); NEUT % 78 % (31-73); PLATELET COUNT 209 x10^3/uL (140-400); RED BLOOD COUNT 4.98 x10^6/uL (4.30-5.70); RED CELL DISTRIBUTION WIDTH 13.5 % (11.5-14.5); WHITE BLOOD COUNT 12.3 x10^3/uL (4.0-11.0)
[2016-07-13 04:30] LABS: GFR 76.2; POTASSIUM 3.9 mmol/L (3.5-5.1)
[2016-07-13] MEDS: IV NORMAL SALINE 1000ML BAG 1,000 ML IV SCH ×2 (07:34→21:30)
[2016-07-13] MEDS: hydroCHLOROthiazide 12.5 MG CAPSULE PO SCH (07:40)
[2016-07-13] MEDS: LANSOPRAZOLE 30 MG TAB.RAP.DR PO SCH (07:40)
[2016-07-13] MEDS: DORZOLAMIDE 2% OPHTH SOLUTION 10ML BOTTLE. OU SCH ×2 (07:41→21:28)
[2016-07-13] MEDS: ASPIRIN CHEWABLE 81 MG TABLET. PO SCH ×2 (07:41→13:09)
[2016-07-13] MEDS: CLOPIDOGREL BISULFATE 75 MG TABLET PO SCH ×2 (07:41→13:09)
[2016-07-13] MEDS: BRIMONIDINE 0.2% OPHTH SOLUTION 5ML BOTTLE. OD SCH ×2 (07:41→21:00)
[2016-07-13] MEDS: BUDESONIDE 0.5 MG/2 ML NEBU. NEB PRN ×2 (07:50→19:41)
[2016-07-13] MEDS: IPRATRPIUM/ALBUTEROL 0.5/2.5MG 3 ML NEBU. NEB SCH ×4 (07:50→19:41)
[2016-07-13] MEDS ORDERED: LISINOPRIL 20 MG TABLET PO SCH (09:00)
--- NOTE | 2016-07-13 09:19 | HP ---
ADMIT DATE: 07/12/2016 CHIEF COMPLAINT: Cerebrovascular accident symptoms. HISTORY OF PRESENT ILLNESS: A 61-year-old male patient presented to the ER with complaints of the left upper extremity and lower extremity numbness and a decreased sensation, symptoms started early this morning, 5:30-6:00 a.m. and by the time he presented to the ER, his NIH stroke scale was around 11 and he was initiated on TPA as the patient presented to hospital within 3 hours during the period. He had a significant history of smoking more than 40 years and COPD diagnosis. He never had a TIA in the past and denies any coronary artery problems. At the time of my examination in the Critical Care, the patient's symptoms still persisted; however, there is no remarkable weakness in extremities. His speech is still slurred. PAST MEDICAL HISTORY: Hypertension, COPD, glaucoma. PAST SURGICAL HISTORY: Abdominal aortic aneurysm surgery, glaucoma, and hernia repair. ALLERGIES: LEVOFLOXACIN, . MEDICATIONS: Reviewed and reconciled. Please see the MRAD. FAMILY HISTORY: Mother had cancer, unknown type. SOCIAL HISTORY: Smoking positive. No alcohol, no substance abuse. REVIEW OF SYSTEMS AND PHYSICAL EXAMINATION: Please see my electronic H and P. LABORATORY FINDINGS: CBC within normal limits. Chemistry within normal limits. Coagulation panel within normal limits. Toxicology within normal limits. IMAGING STUDIES: Head CT and chest x-ray, no acute process seen. ASSESSMENT: 1. Cerebrovascular accident symptoms with left-sided numbness and slurring of speech, status post tissue plasminogen activator. 2. Chronic obstructive pulmonary disease. 3. History of abdominal aortic aneurysm, status post surgery. 4. Obesity, BMI 30.9. 5. Nicotine use. PLAN: 1. The patient has been placed in the Critical Care Unit and he received TPA as per protocol. We are going to check his neurological status as per the protocol. Neurology has been consulted. I did order his echocardiogram, carotid Doppler, and lipid panel. 2. We will keep him n.p.o. and will order MRI as per Neurology recommendations. 3. IV hydration of 75 mL per hour to prevent any dehydration. 4. Home medication reviewed and reconciled. Please see my MRAD. 5. Physical therapy and occupational therapy. 6. Speech and swallow evaluation. PROGNOSIS: Guarded. KRISTAL VARELA MD DR: NILS/evelyn JOB#: [id number] / [id number] [id number]
--- NOTE | 2016-07-13 09:51 | PDOC ---
PROGRESS NOTES Chief Complaint Chief Complaint cc: CVA Symptoms A/P 1. R CVA, Possible Embolic. 2. Chronic obstructive pulmonary disease. 3. History of abdominal aortic aneurysm, status post surgery. 4. Obesity, BMI 30.9. 5. Nicotine use. Plan ? afib, not seen here, cardiology consulted on Aspirin and Plavix Echo normal EF PT/OT CVC transfer d/w cardiology, on betablocker for rate control. Nicotine patch History of Present Illness History of Present Illness no new weakness no paraesthesia no fever Vitals Vitals Vital Signs Date Time Temp Pulse Resp B/P (MAP) Pulse Ox O2 Delivery O2 Flow Rate FiO2 07/13/16 09:00 87 20 124/71 (88) 95 Room Air 07/13/16 08:00 97.6 97.6 07/13/16 06:00 3.0 Physical Exam General: Alert, Oriented X3 Heart: Normal S1, Normal S2 Lungs: Clear Abdomen: Normal bowel sounds, Soft Extremities: No cyanosis Labs LABS Laboratory Tests Test 07/12/16 10:30 07/12/16 11:50 07/13/16 03:55 Nasal Screen MRSA (PCR) Negative (Negative) Urine Opiates Screen Neg (NEG) Urine Methadone Screen Neg (NEG) Urine Barbiturates Neg (NEG) Urine Phencyclidine Screen Neg (NEG) Urine Amphetamine/Methamphetamine Neg (NEG) Urine Benzodiazepines Screen Neg (NEG) Urine Cocaine Screen Neg (NEG) Urine Cannabinoids Screen Neg (NEG) Urine Ethyl Alcohol Neg (NEG) White Blood Count 12.3 x10^3/uL (4.0-11.0) Red Blood Count 4.98 x10^6/uL (4.30-5.70) Hemoglobin 16.0 g/dL (13.0-17.5) Hematocrit 47.0 % (39.0-53.0) Mean Corpuscular Volume 94 fL (79-100) Mean Corpuscular Hemoglobin 32 pg (25-35) Mean Corpuscular Hemoglobin Concent 34 g/dL (31-37) Red Cell Distribution Width 13.5 % (11.5-14.5) Platelet Count 209 x10^3/uL (140-400) Neutrophils (%) (Auto) 78 % (31-73) Lymphocytes (%) (Auto) 13 % (24-48) Monocytes (%) (Auto) 8 % (0-9) Eosinophils (%) (Auto) 1 % (0-3) Basophils (%) (Auto) 1 % (0-3) Neutrophils # (Auto) 9.6 x10^3uL (1.8-7.7) Lymphocytes # (Auto) 1.5 x10^3/uL (1.0-4.8) Monocytes # (Auto) 1.0 x10^3/uL (0.0-1.1) Eosinophils # (Auto) 0.1 x10^3/uL (0.0-0.7) Basophils # (Auto) 0.1 x10^3/uL (0.0-0.2) Sodium Level 142 mmol/L (136-145) Potassium Level 3.9 mmol/L (3.5-5.1) Chloride Level 104 mmol/L (98-107) Carbon Dioxide Level 29 mmol/L (21-32) Anion Gap 9 (6-14) Blood Urea Nitrogen 18 mg/dL (8-26) Creatinine 1.0 mg/dL (0.7-1.3) Estimated GFR (Cockcroft-Gault) 76.2 Glucose Level 94 mg/dL (70-99) Calcium Level 9.0 mg/dL (8.5-10.1) Assessment and Plan Assessmemt and Plan Problems Medical Problems: (1) CVA (cerebral vascular accident) Status: Acute Problems: Comment Review of Relevant I have reviewed the following items chelly (where applicable) has been applied. Labs Laboratory Tests Test 07/12/16 07:43 07/12/16 07:47 07/12/16 08:40 07/12/16 10:30 Glucose (Fingerstick) 116 mg/dL (70-99) White Blood Count 11.7 x10^3/uL (4.0-11.0) Red Blood Count 5.24 x10^6/uL (4.30-5.70) Hemoglobin 17.1 g/dL (13.0-17.5) Hematocrit 48.7 % (39.0-53.0) Mean Corpuscular Volume 93 fL (79-100) Mean Corpuscular Hemoglobin 33 pg (25-35) Mean Corpuscular Hemoglobin Concent 35 g/dL (31-37) Red Cell Distribution Width 13.4 % (11.5-14.5) Platelet Count 238 x10^3/uL (140-400) Neutrophils (%) (Auto) 78 % (31-73) Lymphocytes (%) (Auto) 13 % (24-48) Monocytes (%) (Auto) 8 % (0-9) Eosinophils (%) (Auto) 1 % (0-3) Basophils (%) (Auto) 0 % (0-3) Neutrophils # (Auto) 9.2 x10^3uL (1.8-7.7) Lymphocytes # (Auto) 1.6 x10^3/uL (1.0-4.8) Monocytes # (Auto) 0.9 x10^3/uL (0.0-1.1) Eosinophils # (Auto) 0.1 x10^3/uL (0.0-0.7) Basophils # (Auto) 0.1 x10^3/uL (0.0-0.2) Prothrombin Time 12.7 SEC (11.7-14.0) Prothromb Time International Ratio 1.0 (0.8-1.1) Activated Partial Thromboplast Time 32 SEC (24-38) Sodium Level 139 mmol/L (136-145) Potassium Level 3.7 mmol/L (3.5-5.1) Chloride Level 101 mmol/L (98-107) Carbon Dioxide Level 27 mmol/L (21-32) Anion Gap 11 (6-14) Blood Urea Nitrogen 14 mg/dL (8-26) Creatinine 1.1 mg/dL (0.7-1.3) Estimated GFR (Cockcroft-Gault) 68.3 BUN/Creatinine Ratio 13 (6-20) Glucose Level 109 mg/dL (70-99) Calcium Level 9.5 mg/dL (8.5-10.1) Total Bilirubin 0.8 mg/dL (0.2-1.0) Aspartate Amino Transf (AST/SGOT) 24 U/L (15-37) Alanine Aminotransferase (ALT/SGPT) 16 U/L (16-63) Alkaline Phosphatase 81 U/L (46-116) Troponin I Quantitative < 0.017 ng/mL (0.000-0.055) Total Protein 7.9 g/dL (6.4-8.2) Albumin 3.8 g/dL (3.4-5.0) Albumin/Globulin Ratio 0.9 (1.0-1.7) Triglycerides Level 51 mg/dL (0-150) Cholesterol Level 152 mg/dL (0-200) LDL Cholesterol, Calculated 97 mg/dL (0-100) VLDL Cholesterol, Calculated 10 mg/dL (0-40) Non-HDL Cholesterol Calculated 107 mg/dL (0-129) HDL Cholesterol 45 mg/dL (40-60) Cholesterol/HDL Ratio 3.4 Thyroid Stimulating Hormone (TSH) 0.644 uIU/mL (0.358-3.74) Urine Collection Type Unknown Urine Color Yellow Urine Clarity Clear Urine pH 7.0 Urine Specific Rochert 1.015 Urine Protein Negative mg/dL (NEG-TRACE) Urine Glucose (UA) Negative mg/dL (NEG) Urine Ketones (Stick) Negative mg/dL (NEG) Urine Blood Negative (NEG) Urine Nitrite Negative (NEG) Urine Bilirubin Negative (NEG) Urine Urobilinogen Dipstick 1.0 mg/dL (0.2 mg/dL) Urine Leukocyte Esterase Negative (NEG) Urine RBC 0 /HPF (0-2) Urine WBC Occ /HPF (0-4) Urine Squamous Epithelial Cells Few /LPF Urine Bacteria 0 /HPF (0-FEW) Nasal Screen MRSA (PCR) Negative (Negative) Test 07/12/16 11:50 07/13/16 03:55 Urine Opiates Screen Neg (NEG) Urine Methadone Screen Neg (NEG) Urine Barbiturates Neg (NEG) Urine Phencyclidine Screen Neg (NEG) Urine Amphetamine/Methamphetamine Neg (NEG) Urine Benzodiazepines Screen Neg (NEG) Urine Cocaine Screen Neg (NEG) Urine Cannabinoids Screen Neg (NEG) Urine Ethyl Alcohol Neg (NEG) White Blood Count 12.3 x10^3/uL (4.0-11.0) Red Blood Count 4.98 x10^6/uL (4.30-5.70) Hemoglobin 16.0 g/dL (13.0-17.5) Hematocrit 47.0 % (39.0-53.0) Mean Corpuscular Volume 94 fL (79-100) Mean Corpuscular Hemoglobin 32 pg (25-35) Mean Corpuscular Hemoglobin Concent 34 g/dL (31-37) Red Cell Distribution Width 13.5 % (11.5-14.5) Platelet Count 209 x10^3/uL (140-400) Neutrophils (%) (Auto) 78 % (31-73) Lymphocytes (%) (Auto) 13 % (24-48) Monocytes (%) (Auto) 8 % (0-9) Eosinophils (%) (Auto) 1 % (0-3) Basophils (%) (Auto) 1 % (0-3) Neutrophils # (Auto) 9.6 x10^3uL (1.8-7.7) Lymphocytes # (Auto) 1.5 x10^3/uL (1.0-4.8) Monocytes # (Auto) 1.0 x10^3/uL (0.0-1.1) Eosinophils # (Auto) 0.1 x10^3/uL (0.0-0.7) Basophils # (Auto) 0.1 x10^3/uL (0.0-0.2) Sodium Level 142 mmol/L (136-145) Potassium Level 3.9 mmol/L (3.5-5.1) Chloride Level 104 mmol/L (98-107) Carbon Dioxide Level 29 mmol/L (21-32) Anion Gap 9 (6-14) Blood Urea Nitrogen 18 mg/dL (8-26) Creatinine 1.0 mg/dL (0.7-1.3) Estimated GFR (Cockcroft-Gault) 76.2 Glucose Level 94 mg/dL (70-99) Calcium Level 9.0 mg/dL (8.5-10.1) Laboratory Tests Test 07/12/16 10:30 07/12/16 11:50 07/13/16 03:55 Nasal Screen MRSA (PCR) Negative (Negative) Urine Opiates Screen Neg (NEG) Urine Methadone Screen Neg (NEG) Urine Barbiturates Neg (NEG) Urine Phencyclidine Screen Neg (NEG) Urine Amphetamine/Methamphetamine Neg (NEG) Urine Benzodiazepines Screen Neg (NEG) Urine Cocaine Screen Neg (NEG) Urine Cannabinoids Screen Neg (NEG) Urine Ethyl Alcohol Neg (NEG) White Blood Count 12.3 x10^3/uL (4.0-11.0) Red Blood Count 4.98 x10^6/uL (4.30-5.70) Hemoglobin 16.0 g/dL (13.0-17.5) Hematocrit 47.0 % (39.0-53.0) Mean Corpuscular Volume 94 fL (79-100) Mean Corpuscular Hemoglobin 32 pg (25-35) Mean Corpuscular Hemoglobin Concent 34 g/dL (31-37) Red Cell Distribution Width 13.5 % (11.5-14.5) Platelet Count 209 x10^3/uL (140-400) Neutrophils (%) (Auto) 78 % (31-73) Lymphocytes (%) (Auto) 13 % (24-48) Monocytes (%) (Auto) 8 % (0-9) Eosinophils (%) (Auto) 1 % (0-3) Basophils (%) (Auto) 1 % (0-3) Neutrophils # (Auto) 9.6 x10^3uL (1.8-7.7) Lymphocytes # (Auto) 1.5 x10^3/uL (1.0-4.8) Monocytes # (Auto) 1.0 x10^3/uL (0.0-1.1) Eosinophils # (Auto) 0.1 x10^3/uL (0.0-0.7) Basophils # (Auto) 0.1 x10^3/uL (0.0-0.2) Sodium Level 142 mmol/L (136-145) Potassium Level 3.9 mmol/L (3.5-5.1) Chloride Level 104 mmol/L (98-107) Carbon Dioxide Level 29 mmol/L (21-32) Anion Gap 9 (6-14) Blood Urea Nitrogen 18 mg/dL (8-26) Creatinine 1.0 mg/dL (0.7-1.3) Estimated GFR (Cockcroft-Gault) 76.2 Glucose Level 94 mg/dL (70-99) Calcium Level 9.0 mg/dL (8.5-10.1) Medications Current Medications Alteplase, Recombinant 0 ml @ 0 mls/hr 1X ONCE IV Last administered on 09:04; Start 07/12/16 at 08:45; Stop 07/12/16 at 08:46; Status DC Alteplase, Recombinant 0 ml @ 81 mls/hr Q1H IV Last administered on 07/12/16 09:09; Start 07/12/16 at 08:45; Stop 07/12/16 at 08:46; Status DC Sodium Chloride 50 ml @ 0 mls/hr 1X ONCE IV Last administered on 07/12/16 10: 03; Start 07/12/16 at 08:30; Stop 07/12/16 at 08:39; Status DC Ondansetron HCl (Zofran Odt) 4 mg 1X ONCE PO Last administered on 07/12/16 09 :12; Start 07/12/16 at 09:15; Stop 07/12/16 at 09:16; Status DC Acetaminophen (Tylenol) 325 mg PRN Q6HRS PRN PO MILD PAIN / TEMP; Start at 10:30 Acetaminophen/ Hydrocodone Bitart (Lortab 5/325) 1 tab PRN Q6HRS PRN PO MODERATE TO SEVERE PAIN; Start 07/12/16 at 10:30 Hydralazine HCl (Apresoline) 10 mg PRN Q4HRS PRN IVP ELEVATED BP, SEE COMMENTS ; Start 07/12/16 at 10:30 Ondansetron HCl (Zofran) 4 mg PRN Q8HRS PRN IV NAUSEA/VOMITING; Start 07/12/16 at 10:30 Albuterol Sulfate (Ventolin Neb Soln) 2.5 mg PRN Q4HRS PRN NEB SHORTNESS OF BREATH; Start 07/12/16 at 10:30 Atorvastatin Calcium (Lipitor) 20 mg QHS PO Last administered on 07/12/16 21: 05; Start 07/12/16 at 21:00 Dorzolamide HCl (Trusopt) 1 drop BID OU Last administered on 07/13/16 07:41; Start 07/12/16 at 21:00 Non-Formulary Medication 1 puff PRN Q6HRS PRN INH SHORTNESS OF BREATH; Start at 10:45; Status UNV Budesonide (Pulmicort) 0.5 mg PRN BID PRN NEB SHORTNESS OF BREATH Last administered on 07/13/16 07:50; Start 07/12/16 at 20:00 Brimonidine Tartrate (Alphagan) 1 drop BID OD ; Start 07/12/16 at 21:00 Lansoprazole (Prevacid) 30 mg DAILYAC PO Last administered on 07/13/16 07:40; Start 07/13/16 at 07:30 Lisinopril (Prinivil) 20 mg DAILY PO Last administered on 07/13/16 07:40; Start 07/13/16 at 09:00 Albuterol/ Ipratropium (Duoneb) 3 ml RTQID NEB Last administered on 07/13/16 07:50; Start 07/12/16 at 12:00 Hydrochlorothiazide (Microzide) 12.5 mg DAILY PO Last administered on 07:40; Start 07/13/16 at 09:00 Sodium Chloride 1,000 ml @ 70 mls/hr [id number] IV Last administered on 07:34; Start 07/12/16 at 12:45 Lorazepam (Ativan) 2 mg 1X ONCE IV Last administered on 07/12/16 14:39; Start 07/12/16 at 14:15; Stop 07/12/16 at 14:16; Status DC Clopidogrel Bisulfate (Plavix) 75 mg DAILYWBKFT PO ; Start 07/13/16 at 10:00 Aspirin (Children'S Aspirin) 81 mg DAILYWBKFT PO ; Start 07/13/16 at 10:00 Active Scripts Active Reported Dorzolamide Hcl 10 Ml Drops 1 Drop RIGHTEYE BID Alphagan P (Brimonidine Tartrate) 5 Ml Drops 1 Drop RIGHTEYE BID Qvar 80MCG Inhaler (Beclomethasone Dipropionate) 8.7 Gm Aer.w.adap 1 Puff IH BID PRN Proair Hfa Inhaler (Albuterol Sulfate) 8.5 Gm Hfa.aer.ad 1 Puff INH PRN Q6HRS PRN Lansoprazole 30 Mg Capsule.dr 1 Cap PO DAILY Atorvastatin Calcium 20 Mg Tablet 1 Tab PO DAILY Lisinopril-Hctz 20-12.5 Mg Tab (Lisinopril/Hydrochlorothiazide) 1 Each Tablet 1 Tab PO DAILY Spiriva (Tiotropium [place]) 18 Mcg Cap.w.dev 1 Cap IH DAILY Vitals/I & O Vital Sign - Last 24 Hours 07/12/16 07/12/16 07/12/16 07/12/16 10:02 10:15 10:15 10:30 Temp 97.6 97.6 Pulse 86 71 69 Resp 23 20 20 B/P (MAP) 121/64 (83) 116/70 (85) 110/71 (84) Pulse Ox 94 96 96 O2 Delivery Nasal Cannula Nasal Cannula Nasal Cannula Nasal Cannula O2 Flow Rate 2.0 2.0 1.5 1.5 07/12/16 07/12/16 07/12/16 07/12/16 10:45 11:00 11:15 11:30 Pulse 70 70 80 66 Resp 22 18 18 20 B/P (MAP) 114/72 (86) 118/77 (91) 99/63 (75) 107/64 (78) Pulse Ox 97 96 95 95 O2 Delivery Nasal Cannula Nasal Cannula Nasal Cannula Nasal Cannula O2 Flow Rate 1.5 1.5 1.5 1.5 07/12/16 07/12/16 07/12/16 07/12/16 11:45 12:00 12:00 12:53 Temp 97.4 97.4 Pulse 67 71 Resp 18 18 B/P (MAP) 111/73 (86) 109/58 (75) Pulse Ox 96 96 96 O2 Delivery Nasal Cannula Nasal Cannula Nasal Cannula Nasal Cannula O2 Flow Rate 1.5 2.0 1.5 2.0 07/12/16 07/12/16 07/12/16 07/12/16 15:00 16:00 16:00 16:34 Temp 98.8 98.8 Pulse 72 68 Resp 22 20 B/P (MAP) 87/45 (59) 138/65 (89) Pulse Ox 96 96 98 O2 Delivery Nasal Cannula Nasal Cannula Nasal Cannula Nasal Cannula O2 Flow Rate 1.5 2.0 2.0 2.0 07/12/16 07/12/16 07/12/16 07/12/16 17:00 18:00 19:00 20:00 Temp 98.6 98.6 Pulse 76 87 71 76 Resp 20 24 22 20 B/P (MAP) 135/65 (88) 138/65 (89) 135/75 (95) 102/56 (71) Pulse Ox 96 96 96 94 O2 Delivery Nasal Cannula Nasal Cannula Nasal Cannula Nasal Cannula O2 Flow Rate 2.0 2.0 2.0 2.0 07/12/16 07/12/16 07/12/16 07/12/16 20:00 20:09 20:10 21:00 Pulse 84 Resp 22 B/P (MAP) 106/53 (70) Pulse Ox 93 93 95 O2 Delivery Nasal Cannula Nasal Cannula Nasal Cannula Nasal Cannula O2 Flow Rate 2.0 2.0 2.0 2.0 07/12/16 07/12/16 07/13/16 07/13/16 22:00 23:00 00:00 00:00 Temp 98.0 98.0 Pulse 72 68 62 Resp 18 17 18 B/P (MAP) 102/51 (68) 108/54 (72) 106/55 (72) Pulse Ox 96 96 96 O2 Delivery Nasal Cannula Nasal Cannula Nasal Cannula Nasal Cannula O2 Flow Rate 2.0 2.0 2.0 2.0 07/13/16 07/13/16 07/13/16 07/13/16 01:00 02:00 03:00 04:00 Temp 98.8 98.8 Pulse 65 65 83 76 Resp 18 18 20 20 B/P (MAP) 90/47 (61) 96/76 (83) 115/63 (80) 110/67 (81) Pulse Ox 91 96 97 96 O2 Delivery Nasal Cannula Nasal Cannula Nasal Cannula Nasal Cannula O2 Flow Rate 2.0 3.0 3.0 3.0 07/13/16 07/13/16 07/13/16 07/13/16 04:00 05:00 06:00 07:00 Pulse 76 66 68 Resp 24 20 24 B/P (MAP) 117/75 (89) 104/68 (80) 104/68 (80) Pulse Ox 91 90 98 O2 Delivery Nasal Cannula Nasal Cannula Nasal Cannula Room Air O2 Flow Rate 2.0 3.0 3.0 07/13/16 07/13/16 07/13/16 07/13/16 07:40 07:52 08:00 08:00 Temp 97.6 97.6 Pulse 74 74 Resp 17 B/P (MAP) 116/69 116/69 (85) Pulse Ox 93 92 O2 Delivery Room Air Room Air Room Air 07/13/16 09:00 Pulse 87 Resp 20 B/P (MAP) 124/71 (88) Pulse Ox 95 O2 Delivery Room Air Intake and Output 07/12/16 07/12/16 07/13/16 15:00 23:00 07:00 Intake Total 0 ml 90 ml 799 ml Output Total 575 ml 325 ml 225 ml Balance -575 ml -235 ml 574 ml KRISTAL VARELA MD July 13, 2016 09:51
--- NOTE | 2016-07-13 10:03 | PDOC2 ---
CARDIAC CONSULT DATE OF CONSULT Date of Consult DATE: 07/13/16 TIME: 09:58 REASON FOR CONSULT Reason for Consult: embolic stroke REFERRING PHYSICIAN Referring Physician: Dr. Barry Person SOURCE Source: Chart review, Patient HISTORY OF PRESENT ILLNESS HISTORY OF PRESENT ILLNESS 61 year old male who developed left arm and hand numbness and tingling yesterday a.m. while at work. Presented to ER, diagnosed with stroke and treated with tPa. MRI has demonstrated small scattered foci in the right MCA distribution raising the question of atrial fibrillation in the patient. Denies cardiac history other than AAA repair. Troponin levels and TSH WNL. No acute changes in EKG and baseline rhythm is NSR. Telemetry without dysrhythmias overnight. Reason for Visit: ? of atrial fib PAST MEDICAL HISTORY Cardiovascular: HTN, Hyperlipidemia, Other (AAA; s/p repair) GI: GERD ENT: Other (glaucoma) PAST SURGICAL HISTORY Past Surgical History: Hernia Repair (umbilical) FAMILY HISTORY Family History: Family History Unknown SOCIAL HISTORY Smoke: <1 pack per day (X 40 years) ALCOHOL: none Drugs: None Lives: with Family CURRENT MEDICATIONS CURRENT MEDICATIONS Current Medications Medications (Trade) Dose Ordered Sig/Remy Route PRN Reason Start Time Stop Time Status Last Admin Dose Admin Ondansetron HCl (Zofran) 4 mg PRN Q8HRS PRN IV NAUSEA/VOMITING 07/12/16 10:30 07/13/16 09:54 Atorvastatin Calcium (Lipitor) 20 mg QHS PO 07/12/16 21:00 07/12/16 21:05 Dorzolamide HCl (Trusopt) 1 drop BID OU 07/12/16 21:00 07/13/16 07:41 Budesonide (Pulmicort) 0.5 mg PRN BID PRN NEB SHORTNESS OF BREATH 07/12/16 20:00 07/13/16 07:50 Lansoprazole (Prevacid) 30 mg DAILYAC PO 07/13/16 07:30 07/13/16 07:40 Lisinopril (Prinivil) 20 mg DAILY PO 07/13/16 09:00 07/13/16 07:40 Albuterol/ Ipratropium (Duoneb) 3 ml RTQID NEB 07/12/16 12:00 07/13/16 07:50 Hydrochlorothiazide (Microzide) 12.5 mg DAILY PO 07/13/16 09:00 07/13/16 07:40 Sodium Chloride 1,000 ml @ 70 mls/hr [id number] IV 07/12/16 12:45 07/13/16 07:34 Lorazepam (Ativan) 2 mg 1X ONCE IV 07/12/16 14:15 07/12/16 14:16 DC 07/12/16 14:39 ALLERGIES ALLERGIES: Coded Allergies: levofloxacin (Verified Allergy, Intermediate, "stroke like symptoms", 07/12) thimerosal (Unverified Adverse Reaction, Intermediate, 07/13/16) ROS Review of System 14 point review with pertinent positives in HPI PHYSICAL EXAM General: Alert, Oriented X3, Cooperative, No acute distress HEENT: Atraumatic, PERRLA Lungs: Clear to auscultation, Normal air movement Heart: Regular rate, Normal S1, Normal S2, No murmurs, Other (tele: NSR) Abdomen: Normal bowel sounds, Soft Extremities: No edema, Normal pulses Skin: No rashes Neuro: Normal speech Psych/Mental Status: Mental status NL, Mood NL MUSCULOSKELETAL: No deformity VITALS VITALS Vital Signs Date Time Temp Pulse Resp B/P (MAP) Pulse Ox O2 Delivery O2 Flow Rate FiO2 07/13/16 09:00 87 20 124/71 (88) 95 Room Air 07/13/16 08:00 97.6 97.6 07/13/16 06:00 3.0 LABS Lab: Laboratory Tests Test 07/12/16 10:30 07/12/16 11:50 07/13/16 03:55 Nasal Screen MRSA (PCR) Negative (Negative) Urine Opiates Screen Neg (NEG) Urine Methadone Screen Neg (NEG) Urine Barbiturates Neg (NEG) Urine Phencyclidine Screen Neg (NEG) Urine Amphetamine/Methamphetamine Neg (NEG) Urine Benzodiazepines Screen Neg (NEG) Urine Cocaine Screen Neg (NEG) Urine Cannabinoids Screen Neg (NEG) Urine Ethyl Alcohol Neg (NEG) White Blood Count 12.3 x10^3/uL (4.0-11.0) Red Blood Count 4.98 x10^6/uL (4.30-5.70) Hemoglobin 16.0 g/dL (13.0-17.5) Hematocrit 47.0 % (39.0-53.0) Mean Corpuscular Volume 94 fL (79-100) Mean Corpuscular Hemoglobin 32 pg (25-35) Mean Corpuscular Hemoglobin Concent 34 g/dL (31-37) Red Cell Distribution Width 13.5 % (11.5-14.5) Platelet Count 209 x10^3/uL (140-400) Neutrophils (%) (Auto) 78 % (31-73) Lymphocytes (%) (Auto) 13 % (24-48) Monocytes (%) (Auto) 8 % (0-9) Eosinophils (%) (Auto) 1 % (0-3) Basophils (%) (Auto) 1 % (0-3) Neutrophils # (Auto) 9.6 x10^3uL (1.8-7.7) Lymphocytes # (Auto) 1.5 x10^3/uL (1.0-4.8) Monocytes # (Auto) 1.0 x10^3/uL (0.0-1.1) Eosinophils # (Auto) 0.1 x10^3/uL (0.0-0.7) Basophils # (Auto) 0.1 x10^3/uL (0.0-0.2) Sodium Level 142 mmol/L (136-145) Potassium Level 3.9 mmol/L (3.5-5.1) Chloride Level 104 mmol/L (98-107) Carbon Dioxide Level 29 mmol/L (21-32) Anion Gap 9 (6-14) Blood Urea Nitrogen 18 mg/dL (8-26) Creatinine 1.0 mg/dL (0.7-1.3) Estimated GFR (Cockcroft-Gault) 76.2 Glucose Level 94 mg/dL (70-99) Calcium Level 9.0 mg/dL (8.5-10.1) IMAGES IMAGES CXR: A single view of the chest was obtained. No prior imaging of the chest is available. The heart and pulmonary vessels are within normal limits. There is volume loss at the lung bases most compatible with atelectasis. Underlying pneumonia is not entirely excluded. Significant pleural fluid is not seen. There is no pneumothorax. IMPRESSION: Volume loss at the lung bases likely reflects atelectasis. A definite acute process in the chest is not seen. Brain MRI: FINDINGS: There are scattered small foci of restricted diffusion in the posterior right frontal lobe and the right parietal lobe. These are compatible with acute infarcts. There is some very mild associated edema but no hemorrhage or mass effect. Details mildly degraded by motion artifact. There is no midline shift. Ventricles are normal in size. No extra-axial fluid collection. The arterial flow voids level of the skull base are maintained. There is mucosal thickening in the left maxillary sinus and ethmoid air cells and left frontal sinus. Mastoid air cells are clear. IMPRESSION: Small scattered foci of acute infarction in the right MCA distribution. Consider vascular workup of the carotid vessels as a carotid embolic phenomenon is suspected. EKG EKG no acute changes; no atrial dysrhythmias ECHOCARDIOGRAM ECHOCARDIOGRAM The left ventricular systolic function is normal and the ejection fraction is within normal range. The Ejection Fraction is 65%. There is moderate concentric left ventricular hypertrophy. Transmitral Doppler flow pattern is Grade I-abnormal relaxation pattern. The left atrium size is normal. The right atrium size is normal. The aortic valve is mildly calcified The aortic valve is trileaflet. Mitral annular calcification is mild. The mitral valve leaflets are thickened. There is no pulmonary hypertension. Doppler and Color Flow revealed no tricuspid valve regurgitation noted. The pulmonic valve is not well visualized but appeared to open well. There is no evidence of significant pericardial effusion. ASSESSMENT/PLAN ASSESSMENT/PLAN 1. embolic stroke MRI with small scattered foci in right MCA distribution no evidence of afib/flutter on tele overnight EKG without dysrhythmia will need event monitor and/or LINQ at discharge stop lisinopril and convert to BB for rate control treated with ASA/Plavix for stroke ? OAC as would be triple therapy - ? OAC without documented atrial dysrhythmia request records from [facility] - ? if any documentation re: dysrhythmias 2. ? of atrial fib/flutter no evidence so far continue tele change to BB 3. HTN parameters per Neuro 4 HLD LDLs = 97 continue statin therapy 5. tobacco abuse smoking cessation recommended Problems: [employer] [employer] July 13, 2016 10:03
[2016-07-13] MEDS: NICOTINE 21MG PATCH. TD PRN ×2 (13:09→13:12)
[2016-07-13] MEDS: NICOTINE 14MG PATCH. TD SCH (13:13)
--- NOTE | 2016-07-13 13:24 | PDOC ---
PROGRESS NOTES Assessment Assessment Left side numbness and weakness, and slurred speech. Acute small multiple infarcts in right MCA distribution, embolic etiology, s/p TPA on 07/12/16.. HTN Chest pain. COPD Moderate carotid A stenosis, <50%. Obesity. Smoking x 40 years. RECOMMENDATIONS/PLAN: Started Plavix 75 mg daily, 1st dose 24 hours after TPA on 07/13/16 Started ASA 81 mg daily, 1st dose 24 hours after TPA on 07/13/16. Continue Statin HS. Maintain good hydration. Treat medical diseases. Consulted cardiology for embolic etiology of stroke. Patient education for smoking cessation. OT/PT Discussed in all detail with him and his again at bedside in ICU. Brain MRI w/o contrast: see above stroke findings. Carotid A US + Doppler: Stenosis , 50%. Echo: unremarkable. HISTORY OF THE PRESENT ILLNESS: 61-y-old male patient with Hx of above medical diseases and chronic smoking 1/2 to 1 pack daily for > 40 years. He got up at 5:00 am this morning but developed symptoms of left side UE and LE weakness and slurred speech about 5:36 am. He was brought to the ER of [facility] by private vehicle. His symptoms persistent and his NIH score was 11. After all criteria were met and consent obtained, TPA was administrated in the ER and he was transferred to ICU. He was reportedly worse after TPA, but re- accessment determined was unrelated to TPA. His CVA symptoms improved to NIH score 3 in ICU. He took ASA but has not taken it in the past 2 weeks. He stated on 07/13 that he was doing better after treatment. PAST MEDICAL HISTORY: Please see above. PAST SURGERY HISTORY: Cataract surgery. Hernia Repair. ALLERGY: Reviewed. MEDICATIONS: Refer to [facility] FAMILY HISTORY: Uncertain if his mother had tumor. SOCIAL HISTORY: Lives with his at home. Denies alcohol and illicit drug use. He smokes 1/2 to 1 pack of cigarettes a day for 40 years. REVIEW OF SYSTEMS: Constitutional: No malnutrition, weight loss, cachexia. Head: No recent traumatic brain or head injury. Skin: No edema, or rash. Ear: No infection. Eyes: No vision loss or color blindness. Nose: No bleeding or purulent discharges. Hearing: No hearing decrease. Neck: No recent injury. Cardiac: HTN, chest pain. Pulmonary: Smoking. GI: No GI ulcer, GI bleeding, GERD. Urinary/genital: No dysuria, incontinence, urinary retention. Endocrinologic: Obesity. Skeletomuscular: No muscular atrophy, deformity. Neurological: see HP. Psychiatric: Denies drug use/abuse. Otherwise, not [id number] review of systems. PHYSICAL EXAMINATION: General appearance is in acute distress. HEENT: Normocephalic and nontraumatic. Eyes, nose, ears, and throat are unremarkable. Neck is supple. No lymphadenopathy. No crepitus. Cardiovascular: S1, S2, regular rate and rhythm. Pulmonary: Clear to auscultation bilaterally. Abdomen: Bowel sounds are positive. Abdomen is soft, nontender, and nondistended. Extremities: No rash, lesions, or edema. No restriction of range of motion. NEUROLOGICAL EXAMINATION: Awake. Oriented to place and person but not accurate to time. PERRL. EOMI. CN: no obvious focal findings. Muscle tone: within normal. Muscle strength: 5 DTR: 2 Plantar reflex: Flexor response bilaterally Gait: Able to walk. Sensory exam: no abnormal findings. No cerebellar signs elicited. F-T-N test fine. Objective Objective Vital Signs Date Time Temp Pulse Resp B/P (MAP) Pulse Ox O2 Delivery O2 Flow Rate FiO2 07/13/16 12:00 97.7 72 29 91/63 (72) 92 Room Air 97.7 07/13/16 06:00 3.0 Intake and Output 07/13/16 07:00 Intake Total 889 ml Output Total 1125 ml Balance -236 ml Intake Oral 90 ml IV Total 799 ml Output Urine Total 1125 ml Vitals Signs Vitals VS - Last 72 Hours, by Label Date Time Temp Pulse Resp B/P (MAP) Pulse Ox O2 Delivery O2 Flow Rate FiO2 07/13/16 12:00 97.7 72 29 91/63 (72) 92 Room Air 97.7 07/13/16 12:00 Room Air 07/13/16 11:57 Room Air 07/13/16 11:00 75 26 100/62 (75) 94 Room Air 07/13/16 10:00 77 25 103/62 (76) 91 Room Air 07/13/16 09:00 87 20 124/71 (88) 95 Room Air 07/13/16 08:00 Room Air 07/13/16 08:00 97.6 74 17 116/69 (85) 92 Room Air 97.6 07/13/16 07:52 93 Room Air 07/13/16 07:40 74 116/69 07/13/16 07:00 68 24 104/68 (80) 98 Room Air 07/13/16 06:00 66 20 104/68 (80) 90 Nasal Cannula 3.0 07/13/16 05:00 76 24 117/75 (89) 91 Nasal Cannula 3.0 07/13/16 04:00 Nasal Cannula 2.0 07/13/16 04:00 98.8 76 20 110/67 (81) 96 Nasal Cannula 3.0 98.8 07/13/16 03:00 83 20 115/63 (80) 97 Nasal Cannula 3.0 07/13/16 02:00 65 18 96/76 (83) 96 Nasal Cannula 3.0 07/13/16 01:00 65 18 90/47 (61) 91 Nasal Cannula 2.0 07/13/16 00:00 98.0 62 18 106/55 (72) 96 Nasal Cannula 2.0 98.0 07/13/16 00:00 Nasal Cannula 2.0 07/12/16 23:00 68 17 108/54 (72) 96 Nasal Cannula 2.0 07/12/16 22:00 72 18 102/51 (68) 96 Nasal Cannula 2.0 07/12/16 21:00 84 22 106/53 (70) 95 Nasal Cannula 2.0 07/12/16 20:10 93 Nasal Cannula 2.0 07/12/16 20:09 93 Nasal Cannula 2.0 07/12/16 20:00 Nasal Cannula 2.0 07/12/16 20:00 98.6 76 20 102/56 (71) 94 Nasal Cannula 2.0 98.6 07/12/16 19:00 71 22 135/75 (95) 96 Nasal Cannula 2.0 07/12/16 18:00 87 24 138/65 (89) 96 Nasal Cannula 2.0 07/12/16 17:00 76 20 135/65 (88) 96 Nasal Cannula 2.0 07/12/16 16:34 98 Nasal Cannula 2.0 07/12/16 16:00 Nasal Cannula 2.0 07/12/16 16:00 98.8 68 20 138/65 (89) 96 Nasal Cannula 2.0 98.8 07/12/16 15:00 72 22 87/45 (59) 96 Nasal Cannula 1.5 07/12/16 12:53 96 Nasal Cannula 2.0 07/12/16 12:00 97.4 71 18 109/58 (75) 96 Nasal Cannula 1.5 97.4 07/12/16 12:00 Nasal Cannula 2.0 07/12/16 11:45 67 18 111/73 (86) 96 Nasal Cannula 1.5 07/12/16 11:30 66 20 107/64 (78) 95 Nasal Cannula 1.5 07/12/16 11:15 80 18 99/63 (75) 95 Nasal Cannula 1.5 07/12/16 11:00 70 18 118/77 (91) 96 Nasal Cannula 1.5 07/12/16 10:45 70 22 114/72 (86) 97 Nasal Cannula 1.5 07/12/16 10:30 69 20 110/71 (84) 96 Nasal Cannula 1.5 07/12/16 10:15 97.6 71 20 116/70 (85) 96 Nasal Cannula 1.5 97.6 07/12/16 10:15 Nasal Cannula 2.0 07/12/16 10:02 86 23 121/64 (83) 94 Nasal Cannula 2.0 07/12/16 09:47 76 16 117/61 (79) 92 Nasal Cannula 07/12/16 09:32 74 19 117/66 (83) Nasal Cannula 2.0 07/12/16 09:17 79 18 110/61 (77) 96 Room Air 07/12/16 09:02 72 22 114/59 (77) 94 Nasal Cannula 2.0 07/12/16 08:47 94 23 117/62 (80) 94 Nasal Cannula 2.0 07/12/16 08:32 76 18 134/76 (95) 92 Room Air 07/12/16 08:17 76 19 155/94 (114) 92 Room Air 07/12/16 08:01 73 20 127/78 (94) 92 Room Air 07/12/16 07:54 97.7 73 20 142/83 (102) 95 Room Air 97.7 Laboratory Laboratory Laboratory Tests Test 07/13/16 03:55 White Blood Count 12.3 x10^3/uL (4.0-11.0) Red Blood Count 4.98 x10^6/uL (4.30-5.70) Hemoglobin 16.0 g/dL (13.0-17.5) Hematocrit 47.0 % (39.0-53.0) Mean Corpuscular Volume 94 fL (79-100) Mean Corpuscular Hemoglobin 32 pg (25-35) Mean Corpuscular Hemoglobin Concent 34 g/dL (31-37) Red Cell Distribution Width 13.5 % (11.5-14.5) Platelet Count 209 x10^3/uL (140-400) Neutrophils (%) (Auto) 78 % (31-73) Lymphocytes (%) (Auto) 13 % (24-48) Monocytes (%) (Auto) 8 % (0-9) Eosinophils (%) (Auto) 1 % (0-3) Basophils (%) (Auto) 1 % (0-3) Neutrophils # (Auto) 9.6 x10^3uL (1.8-7.7) Lymphocytes # (Auto) 1.5 x10^3/uL (1.0-4.8) Monocytes # (Auto) 1.0 x10^3/uL (0.0-1.1) Eosinophils # (Auto) 0.1 x10^3/uL (0.0-0.7) Basophils # (Auto) 0.1 x10^3/uL (0.0-0.2) Sodium Level 142 mmol/L (136-145) Potassium Level 3.9 mmol/L (3.5-5.1) Chloride Level 104 mmol/L (98-107) Carbon Dioxide Level 29 mmol/L (21-32) Anion Gap 9 (6-14) Blood Urea Nitrogen 18 mg/dL (8-26) Creatinine 1.0 mg/dL (0.7-1.3) Estimated GFR (Cockcroft-Gault) 76.2 Glucose Level 94 mg/dL (70-99) Calcium Level 9.0 mg/dL (8.5-10.1) Medication Medications Current Medications Aspirin (Children'S Aspirin) 81 mg DAILYWBKFT PO Last administered on 13:09; Start 07/13/16 at 10:00 Atorvastatin Calcium (Lipitor) 20 mg QHS PO Last administered on 07/12/16 21: 05; Start 07/12/16 at 21:00 Brimonidine Tartrate (Alphagan) 1 drop BID OD ; Start 07/12/16 at 21:00 Budesonide (Pulmicort) 0.5 mg PRN BID PRN NEB SHORTNESS OF BREATH Last administered on 07/13/16 07:50; Start 07/12/16 at 20:00 Clopidogrel Bisulfate (Plavix) 75 mg DAILYWBKFT PO Last administered on 13:09; Start 07/13/16 at 10:00 Dorzolamide HCl (Trusopt) 1 drop BID OU Last administered on 07/13/16 07:41; Start 07/12/16 at 21:00 Hydrochlorothiazide (Microzide) 12.5 mg DAILY PO Last administered on 07:40; Start 07/13/16 at 09:00 Lansoprazole (Prevacid) 30 mg DAILYAC PO Last administered on 07/13/16 07:40; Start 07/13/16 at 07:30 Lisinopril (Prinivil) 20 mg DAILY PO Last administered on 07/13/16 07:40; Start 07/13/16 at 09:00; Stop 07/13/16 at 10:09; Status DC Lorazepam (Ativan) 2 mg 1X ONCE IV Last administered on 07/12/16 14:39; Start 07/12/16 at 14:15; Stop 07/12/16 at 14:16; Status DC Metoprolol Tartrate (Lopressor) 25 mg BID PO ; Start 07/13/16 at 21:00 Nicotine (Nicoderm Cq 14mg) 1 patch DAILY TD Last administered on 07/13/16 13: 13; Start 07/13/16 at 13:30 Nicotine (Nicoderm Cq 21mg) 1 patch PRN DAILY PRN TD SMOKING CESSATION Last administered on 07/13/16 13:12; Start 07/13/16 at 10:45 Comment Review of Relevant I have reviewed the following items chelly (where applicable) has been applied. RICH ANDERSEN MD July 13, 2016 13:24
[2016-07-13] MEDS: ATORVASTATIN CALCIUM 20 MG TABLET PO SCH (21:28)
[2016-07-13] MEDS: METOPROLOL TART IMMED RELEASE 25 MG TABLET. PO SCH (21:29)
[2016-07-14 03:00] VITALS: BP 98/62
[2016-07-14 03:04] LABS: BASO % 0 % (0-3); EOS % 1 % (0-3); HEMATOCRIT 43.9 % (39.0-53.0); LYMPH # 1.8 x10^3/uL (1.0-4.8); LYMPH % 16 % (24-48); MEAN CORPUSCULAR HEMOGLOBIN 32 pg (25-35); MEAN CORPUSCULAR HGB CONC 34 g/dL (31-37); MEAN CORPUSCULAR VOLUME 94 fL (79-100); MONO % 10 % (0-9); NEUT % 73 % (31-73); PLATELET COUNT 194 x10^3/uL (140-400); RED BLOOD COUNT 4.67 x10^6/uL (4.30-5.70); RED CELL DISTRIBUTION WIDTH 13.4 % (11.5-14.5); WHITE BLOOD COUNT 11.3 x10^3/uL (4.0-11.0)
[2016-07-14 03:17] LABS: CALCIUM 8.9 mg/dL (8.5-10.1); CREATININE 1.1 mg/dL (0.7-1.3); GFR 68.3; POTASSIUM 3.8 mmol/L (3.5-5.1)
[2016-07-14] MEDS: LANSOPRAZOLE 30 MG TAB.RAP.DR PO SCH (06:13)
[2016-07-14 07:00] VITALS: BP 102/71
[2016-07-14] MEDS: METOPROLOL TART IMMED RELEASE 25 MG TABLET. PO SCH (08:38)
[2016-07-14] MEDS: hydroCHLOROthiazide 12.5 MG CAPSULE PO SCH (08:38)
[2016-07-14] MEDS: BRIMONIDINE 0.2% OPHTH SOLUTION 5ML BOTTLE. OD SCH (08:39)
[2016-07-14] MEDS: DORZOLAMIDE 2% OPHTH SOLUTION 10ML BOTTLE. OU SCH (08:39)
[2016-07-14] MEDS: BUDESONIDE 0.5 MG/2 ML NEBU. NEB PRN (08:40)
[2016-07-14] MEDS: IPRATRPIUM/ALBUTEROL 0.5/2.5MG 3 ML NEBU. NEB SCH ×2 (08:40→12:00)
[2016-07-14] MEDS: CLOPIDOGREL BISULFATE 75 MG TABLET PO SCH (08:40)
[2016-07-14] MEDS: NICOTINE 14MG PATCH. TD SCH (10:28)
[2016-07-14 11:00] VITALS: BP 109/72
[2016-07-14] MEDS ORDERED: ANTI-COAG MONITOR BY PHARMACY. MC PRN (11:30)
--- NOTE | 2016-07-14 11:48 | PDOC ---
CARDIO Progress Notes Date and Time Date of Service 07/14/2016 Time of Evaluation 1143 Subjective Subjective: No Chest Pain, No shortness of breath, No Palpitations, No Dizziness Vitals Vitals Vital Signs Date Time Temp Pulse Resp B/P (MAP) Pulse Ox O2 Delivery O2 Flow Rate FiO2 07/14/16 11:00 98.3 65 18 109/72 (84) 95 Room Air 98.3 Weight Weight [ ] Stability Assessment Stability Assess.: other (agreeable with discharge) Input and Output Intake and Output Intake and Output 07/14/16 06:59 Intake Total 2020 ml Output Total 950 ml Balance 1070 ml Intake Oral 1250 ml IV Total 770 ml Output Urine Total 950 ml # Voids 4 Laboratory Labs Laboratory Tests Test 07/14/16 02:38 White Blood Count 11.3 x10^3/uL (4.0-11.0) Red Blood Count 4.67 x10^6/uL (4.30-5.70) Hemoglobin 15.0 g/dL (13.0-17.5) Hematocrit 43.9 % (39.0-53.0) Mean Corpuscular Volume 94 fL (79-100) Mean Corpuscular Hemoglobin 32 pg (25-35) Mean Corpuscular Hemoglobin Concent 34 g/dL (31-37) Red Cell Distribution Width 13.4 % (11.5-14.5) Platelet Count 194 x10^3/uL (140-400) Neutrophils (%) (Auto) 73 % (31-73) Lymphocytes (%) (Auto) 16 % (24-48) Monocytes (%) (Auto) 10 % (0-9) Eosinophils (%) (Auto) 1 % (0-3) Basophils (%) (Auto) 0 % (0-3) Neutrophils # (Auto) 8.2 x10^3uL (1.8-7.7) Lymphocytes # (Auto) 1.8 x10^3/uL (1.0-4.8) Monocytes # (Auto) 1.1 x10^3/uL (0.0-1.1) Eosinophils # (Auto) 0.2 x10^3/uL (0.0-0.7) Basophils # (Auto) 0.0 x10^3/uL (0.0-0.2) Sodium Level 140 mmol/L (136-145) Potassium Level 3.8 mmol/L (3.5-5.1) Chloride Level 104 mmol/L (98-107) Carbon Dioxide Level 28 mmol/L (21-32) Anion Gap 8 (6-14) Blood Urea Nitrogen 14 mg/dL (8-26) Creatinine 1.1 mg/dL (0.7-1.3) Estimated GFR (Cockcroft-Gault) 68.3 Glucose Level 93 mg/dL (70-99) Calcium Level 8.9 mg/dL (8.5-10.1) Physical Exam HEENT: Neck Supple W Full Motion Chest: Symmetric LUNGS: Clear to Auscultation Heart: S1S2, RRR, no murmurs, other (tele: SR; no dysrhythmias) Abdomen: Soft N/T Extremities: No Edema Neurology: alert, oriented, follow commands Assessment Assessment 1. embolic stroke MRI with small scattered foci in right MCA distribution - presumed atrial fib /flutter no evidence of afib/flutter on tele overnight - needs event or LINQ monitor - plans to follow up at [facility] in [facility] - advised follow up in the next week treated with ASA/Plavix for stroke - discussed with Neuro; agreeable to d/c ASA and start OAC starting Eliquis 5 mg BID continue to await records from [facility] 2. ? of atrial fib/flutter no evidence so far continue tele change to BB 3. HTN parameters per Neuro 4 HLD LDLs = 97 continue statin therapy 5. tobacco abuse smoking cessation recommended Agreeable with discharg follow up as above TONYA ZUÑIGA APRN July 14, 2016 11:48
[2016-07-14] MEDS ORDERED: CLOP75TA PO (11:51)
[2016-07-14] MEDS ORDERED: APIX5TAB PO (11:51)
[2016-07-14] MEDS ORDERED: HYDR12.53 PO (11:51)
[2016-07-14] MEDS ORDERED: Nicotine 21MG TD (11:51)
[2016-07-14] MEDS ORDERED: METO25TA4 PO (11:51)
[2016-07-14] MEDS ORDERED: APIXABAN 5 MG TABLET. PO SCH (12:00)
--- NOTE | 2016-07-14 13:07 | PDOC ---
PROGRESS NOTES Assessment Assessment Left side numbness and weakness, and slurred speech. Acute small multiple infarcts in right MCA distribution, embolic etiology, s/p TPA on 07/12/16.. HTN Chest pain. COPD Moderate carotid A stenosis, <50%. Obesity. Smoking x 40 years. RECOMMENDATIONS/PLAN: Melendez and Plavix per Cardiology. Discontinue ASA. Continue Statin HS. Maintain good hydration. Treat medical diseases. Patient education for smoking cessation. Discussed in all detail with him and his at bedside on 07/12 and 07/13. FU with PCP. FU with Cardiology. FU with Neurology in his area. Brain MRI w/o contrast: see above stroke findings. Carotid A US + Doppler: Stenosis , 50%. Echo: unremarkable. HISTORY OF THE PRESENT ILLNESS: 61-y-old male patient with Hx of above medical diseases and chronic smoking 1/2 to 1 pack daily for > 40 years. He got up at 5:00 am this morning but developed symptoms of left side UE and LE weakness and slurred speech about 5:36 am. He was brought to the ER of [facility] by private vehicle. His symptoms persistent and his NIH score was 11. After all criteria were met and consent obtained, TPA was administrated in the ER and he was transferred to ICU. He was reportedly worse after TPA, but re- accessment determined was unrelated to TPA. His CVA symptoms improved to NIH score 3 in ICU. He took ASA but has not taken it in the past 2 weeks. He stated on 07/14 that he was doing much better after treatment. PAST MEDICAL HISTORY: Please see above. PAST SURGERY HISTORY: Cataract surgery. Hernia Repair. ALLERGY: Reviewed. MEDICATIONS: Refer to [facility] FAMILY HISTORY: Uncertain if his mother had tumor. SOCIAL HISTORY: Lives with his at home. Denies alcohol and illicit drug use. He smokes 1/2 to 1 pack of cigarettes a day for 40 years. REVIEW OF SYSTEMS: Constitutional: No malnutrition, weight loss, cachexia. Head: No recent traumatic brain or head injury. Skin: No edema, or rash. Ear: No infection. Eyes: No vision loss or color blindness. Nose: No bleeding or purulent discharges. Hearing: No hearing decrease. Neck: No recent injury. Cardiac: HTN, chest pain. Pulmonary: Smoking. GI: No GI ulcer, GI bleeding, GERD. Urinary/genital: No dysuria, incontinence, urinary retention. Endocrinologic: Obesity. Skeletomuscular: No muscular atrophy, deformity. Neurological: see HP. Psychiatric: Denies drug use/abuse. Otherwise, not [id number] review of systems. PHYSICAL EXAMINATION: General appearance is in acute distress. HEENT: Normocephalic and nontraumatic. Eyes, nose, ears, and throat are unremarkable. Neck is supple. No lymphadenopathy. No crepitus. Cardiovascular: S1, S2, regular rate and rhythm. Pulmonary: Clear to auscultation bilaterally. Abdomen: Bowel sounds are positive. Abdomen is soft, nontender, and nondistended. Extremities: No rash, lesions, or edema. No restriction of range of motion. NEUROLOGICAL EXAMINATION: Awake. Oriented to place and person but not accurate to time. PERRL. EOMI. CN: no obvious focal findings. Muscle tone: within normal. Muscle strength: 5 DTR: 2 Plantar reflex: Flexor response bilaterally Gait: Able to walk. Sensory exam: no abnormal findings. No cerebellar signs elicited. F-T-N test fine. Objective Objective Vital Signs Date Time Temp Pulse Resp B/P (MAP) Pulse Ox O2 Delivery O2 Flow Rate FiO2 07/14/16 12:01 96 Room Air 07/14/16 11:00 98.3 65 18 109/72 (84) 98.3 Intake and Output 07/14/16 07:00 Intake Total 2020 ml Output Total 950 ml Balance 1070 ml Intake Oral 1250 ml IV Total 770 ml Output Urine Total 950 ml # Voids 4 Vitals Signs Vitals VS - Last 72 Hours, by Label Date Time Temp Pulse Resp B/P (MAP) Pulse Ox O2 Delivery O2 Flow Rate FiO2 07/14/16 12:01 96 Room Air 07/14/16 11:00 98.3 65 18 109/72 (84) 95 Room Air 98.3 07/14/16 08:44 96 Room Air 07/14/16 08:41 96 Room Air 07/14/16 08:38 68 102/71 07/14/16 07:47 Room Air 07/14/16 07:00 97.9 68 18 102/71 (81) 96 Room Air 97.9 07/14/16 03:00 98.2 65 18 98/62 (74) 93 Room Air 98.2 07/13/16 23:00 98.2 68 18 104/56 (72) 94 Room Air 98.2 07/13/16 21:29 90 152/67 07/13/16 19:45 95 Room Air 07/13/16 19:42 95 Room Air 07/13/16 19:40 Room Air 07/13/16 19:20 98.0 87 18 120/72 (88) 95 Room Air 98.0 07/13/16 18:05 Room Air 07/13/16 16:56 Room Air 07/13/16 15:32 Room Air 07/13/16 15:00 73 24 110/58 (75) 93 Room Air 07/13/16 12:00 97.7 72 29 91/63 (72) 92 Room Air 97.7 07/13/16 12:00 Room Air 07/13/16 11:57 Room Air 07/13/16 11:00 75 26 100/62 (75) 94 Room Air 07/13/16 10:00 77 25 103/62 (76) 91 Room Air 07/13/16 09:00 87 20 124/71 (88) 95 Room Air 07/13/16 08:00 Room Air 07/13/16 08:00 97.6 74 17 116/69 (85) 92 Room Air 97.6 07/13/16 07:52 93 Room Air 07/13/16 07:40 74 116/69 07/13/16 07:00 68 24 104/68 (80) 98 Room Air Laboratory Laboratory Laboratory Tests Test 07/14/16 02:38 White Blood Count 11.3 x10^3/uL (4.0-11.0) Red Blood Count 4.67 x10^6/uL (4.30-5.70) Hemoglobin 15.0 g/dL (13.0-17.5) Hematocrit 43.9 % (39.0-53.0) Mean Corpuscular Volume 94 fL (79-100) Mean Corpuscular Hemoglobin 32 pg (25-35) Mean Corpuscular Hemoglobin Concent 34 g/dL (31-37) Red Cell Distribution Width 13.4 % (11.5-14.5) Platelet Count 194 x10^3/uL (140-400) Neutrophils (%) (Auto) 73 % (31-73) Lymphocytes (%) (Auto) 16 % (24-48) Monocytes (%) (Auto) 10 % (0-9) Eosinophils (%) (Auto) 1 % (0-3) Basophils (%) (Auto) 0 % (0-3) Neutrophils # (Auto) 8.2 x10^3uL (1.8-7.7) Lymphocytes # (Auto) 1.8 x10^3/uL (1.0-4.8) Monocytes # (Auto) 1.1 x10^3/uL (0.0-1.1) Eosinophils # (Auto) 0.2 x10^3/uL (0.0-0.7) Basophils # (Auto) 0.0 x10^3/uL (0.0-0.2) Sodium Level 140 mmol/L (136-145) Potassium Level 3.8 mmol/L (3.5-5.1) Chloride Level 104 mmol/L (98-107) Carbon Dioxide Level 28 mmol/L (21-32) Anion Gap 8 (6-14) Blood Urea Nitrogen 14 mg/dL (8-26) Creatinine 1.1 mg/dL (0.7-1.3) Estimated GFR (Cockcroft-Gault) 68.3 Glucose Level 93 mg/dL (70-99) Calcium Level 8.9 mg/dL (8.5-10.1) Magnesium Level 2.0 mg/dL (1.8-2.4) Medication Medications Current Medications Apixaban (Eliquis) 5 mg BID PO ; Start 07/14/16 at 12:00 Info (Anti-Coagulation Monitoring By Pharmacy) 1 each PRN DAILY PRN MC SEE COMMENTS; Start 07/14/16 at 11:30 Metoprolol Tartrate (Lopressor) 25 mg BID PO Last administered on 07/14/16 08: 38; Start 07/13/16 at 21:00 Nicotine (Nicoderm Cq 14mg) 1 patch DAILY TD Last administered on 07/14/16 10: 28; Start 07/13/16 at 13:30 Comment Review of Relevant I have reviewed the following items chelly (where applicable) has been applied. RICH ANDERSEN MD July 14, 2016 13:07
== END 2016-07-14 13:30 | disposition home or self-care (01) | DRG 62 ==
LOC: ER 07:28 → 1 WEST ICU 08:46 → 2 NORTH 07-13 18:00
PROVIDERS: ADMIT Internal Medicine; ATTEND Internal Medicine
DX: I63.9 Cerebral infarction, unspecified (principal); J98.11 Atelectasis; J44.9 Chronic obstructive pulmonary disease, unspecified; I10 Essential (primary) hypertension; F17.210 Nicotine dependence, cigarettes, uncomplicated; E66.9 Obesity, unspecified; K21.9 Gastro-esophageal reflux disease without esophagitis; I35.0 Nonrheumatic aortic (valve) stenosis; E78.5 Hyperlipidemia, unspecified; Z80.9 Family history of malignant neoplasm, unspecified; Z86.79 Personal history of other diseases of the circulatory system; Z82.49 Family history of ischemic heart disease and other diseases of the circulatory system; Z79.02 Long term (current) use of antithrombotics/antiplatelets; Z79.82 Long term (current) use of aspirin; Z68.31 Body mass index [BMI] 31.0-31.9, adult; Z87.891 Personal history of nicotine dependence; Z88.1 Allergy status to other antibiotic agents
CPT/HCPCS: 36415; 70450; 70551; 71010; 80048; 80053; 80061; 81001; 82947; 83735; 84443; 84484; 85027; 85610; 85730; 87641; 93005; 93880; 94250; 94640; 94760; 99282; C8929; G0481; J2060; J2405; J2997; J7030; J7620; Q0162; 92610